=== PATIENT | male | born 1970 | race Caucasian/White ===

== ENCOUNTER 2016-09-22 01:02 | Inpatient (IN) | payer OTHER ==
[~2016-09-22] VITALS: Ht 182.9 cm; Wt 93.5 kg
[~2016-09-22 01:02] MED LIST: DOXE150C7 PO; FLUO40CA PO; GABA300C5 PO; LISI-515 PO; NOVOLOGSS
[2016-09-22] MEDS: SODIUM CHLOR 0.9% 1000 ML INJ 1,000 ML IV SCH ×3 (01:46→21:46)
[2016-09-22] MEDS ORDERED: ONDANSETRON HCL 4 MG/2 ML VIAL IVP PRN (02:00)
[2016-09-22] MEDS ORDERED: SODIUM CHLORIDE 0.9% FLUSH 10 ML FLUSH IV FLUSH PRN (02:00)
[2016-09-22] MEDS ORDERED: NALOXONE HCL 0.4 MG/ML AMP IV PRN ×2 (02:00→13:45)
[2016-09-22] MEDS ORDERED: NOVOINJ6 SQ (03:53)
[2016-09-22] MEDS ORDERED: NOVONP2 SQ (03:55)
[2016-09-22] MEDS ORDERED: RITA20TA PO (03:56)
[2016-09-22 04:00] VITALS: BP 118/94; PULSE 97; RESP 20; TEMP 96.9; O2SAT 100
[2016-09-22] MEDS ORDERED: REGL10TA5 PO (04:02)
[2016-09-22] MEDS ORDERED: GLUCAGON 1 MG/ML VIAL OTHER PRN (04:30)
[2016-09-22] MEDS: MORPHINE SULFATE 4 MG/ML INJ IV PUSH PRN ×4 (04:30→13:35)
[2016-09-22] MEDS ORDERED: DEXTROSE 50% IN WATER 50 ML VIAL(D50) IV PRN (04:30)
[2016-09-22] MEDS: INSULIN ASPART SUPPLEMENTAL SCALE SQ SCH ×4 (05:03→21:15)
[2016-09-22 05:32] LABS: CREATINE KINASE 57 U/L (39-308)
[2016-09-22] MEDS ORDERED: ORAMORPH PO (06:41)
[2016-09-22] MEDS: SODIUM CHLORIDE 0.9% FLUSH 10 ML FLUSH IV FLUSH SCH ×2 (07:30→21:10)
[2016-09-22 07:51] VITALS: PULSE 90
[2016-09-22 08:30] VITALS: BP 162/87; PULSE 89; RESP 19; TEMP 95.8; O2SAT 98
--- NOTE | 2016-09-22 08:36 | PD.CONS ---
cc: Josh Quintana MD [facility] Service General Surgery Consult Requested By Dr. Crowley Reason for Consult Evaluate small bowel obstruction Primary Care Physician No Primary Care Physician History of Present Illness This is a 46-year-old male with a history of type 1 diabetes mellitus, anxiety, depression, diverticulitis, GERD and hypertension. The patient reports the [facility] EGD With complaints of chest pain that starts in the left side and radiates to the right side with associated shortness of breath and nausea. He reports the pain as sharp in rates and an 8 out of 10 at its worst. He reports his blood sugar on arrival was in the 300s. He reports no vomiting. His last bowel movement was on Sunday. A CT abdomen and pelvis was obtained which showed early or partial small bowel obstruction in the anterior lower abdomen that may be related to adhesions. The patient has not had any emesis prior to arrival or during this hospitalization. A General Surgery consultation has been requested for evaluation of an earlier partial small bowel resection. Review of Systems Constitutional: DENIES: Fatigue, Chills, Change in appetite Endocrine: DENIES: Polydipsia, Polyuria, Polyphagia Eyes: DENIES: Diplopia Respiratory: DENIES: Cough Cardiovascular: COMPLAINS OF: Chest pain, Dyspnea on Exertion Gastrointestinal: COMPLAINS OF: Nausea, DENIES: Abdominal pain, Vomiting Genitourinary: DENIES: Urinary frequency Musculoskeletal: DENIES: Joint pain Integumentary: DENIES: Abnormal pigmentation Hematologic/lymphatic: DENIES: Bruising Immunologic/allergic: DENIES: Eczema Neurologic: DENIES: Abnormal gait, Headache Psychiatric: DENIES: Confusion, Mood changes, Depression Past Family Social History Past Medical History Type 1 diabetes mellitus Anxiety Depression Diverticulitis GERD Hypertension Past Surgical History Laparoscopic appendectomy Laparoscopic cholecystectomy Reported Medications Lisinopril Gabapentin NovoLog Novolin Oramorph Doxepin Fluoxetine Reglan Ritalin Allergies: Coded Allergies: Nonsteroidal Anti-Inflammatory Agts (Verified Allergy, Severe, 09/21/16) Toradol (Unverified Allergy, Severe, UNK, 09/21/16) Tylenol (Unverified Allergy, Severe, TONGUE SWELLING, 09/21/16) Zofran (Unverified Allergy, Intermediate, RED SKIN, 09/21/16) Active Ordered Medications Current Medications Medications (Trade) Dose Ordered Sig/Damien Route Start Time Stop Time Status Last Admin (NS 1000 ml Inj) 1,000 ml @ 100 mls/hr Q10H IV 09/22/16 01:46 09/22/16 01:46 (NS Flush) 2 ml UNSCH PRN IV FLUSH 09/22/16 02:00 (NS Flush) 2 ml BID IV FLUSH 09/22/16 09:00 09/22/16 07:30 (Narcan Inj) 0.4 mg UNSCH PRN IV 09/22/16 02:00 (Morphine Inj) 4 mg Q3H PRN IV PUSH 09/22/16 04:30 09/22/16 07:31 (D50w (Vial) Inj) 50 ml UNSCH PRN IV 09/22/16 04:30 (Glucagon Inj) 1 mg UNSCH PRN OTHER 09/22/16 04:30 Family History Noncontributory Social History Positive tobacco use--uses chewing tobacco Denies EtOH use Denies illicit drug use Physical Exam Vital Signs Vital Signs Date Time Temp Pulse Resp B/P Pulse Ox O2 Delivery O2 Flow Rate FiO2 09/22/16 08:30 95.8 89 19 162/87 98 09/22/16 04:00 96.9 97 20 118/94 100 Physical Exam GENERAL: Pleasant 46 year old male resting in bed no acute distress. SKIN: Warm and dry. HEAD: Atraumatic. Normocephalic. EYES: Pupils equal and round. No scleral icterus. No injection or drainage. ENT: No nasal bleeding or discharge. Mucous membranes pink and moist. NECK: Trachea midline. CARDIOVASCULAR: Regular rate and rhythm. RESPIRATORY: No accessory muscle use. Clear to auscultation. Breath sounds equal bilaterally. GASTROINTESTINAL: Abdomen soft, nondistended; minimally tender with deep palpation. No visible scars on abdomen. MUSCULOSKELETAL: Extremities without clubbing, cyanosis, or edema. No obvious deformities. NEUROLOGICAL: Awake and alert. No obvious cranial nerve deficits. Motor grossly within normal limits. Five out of 5 muscle strength in the arms and legs. Normal speech. PSYCHIATRIC: Appropriate mood and affect; insight and judgment normal. Laboratory Laboratory Tests Test 09/22/16 05:00 Total Creatine Kinase 57 Troponin I LESS THAN 0.[address] abd/pelvis from [facility]- early or partial small bowel obstruction in the anterior lower abdomen; may be related to adhesions Assessment and Plan Assessment and Plan 46 year old male with chest pain; + nausea - vomiting; CT abd/pelvis shows partial small bowel obstruction -Low suspicion of partial small bowel obstruction based on exam -Diet as tolerated -HEPAS team to workup chest pain -No operative plans -Thank you for this consult -General Surgery will sign off -Please call with questions I CERTIFY AND ATTEST THAT I PERSONALLY EXAMINED THIS PATIENT IN HIS ROOM AND REVIEWED THE EMR. MS DAVILA DOCUMENTED OUR VISIT. IN EXAMINING THIS PATIENT AND REVIEWING THE EMR HE HAS ABSOLUTELY NO CLINICAL HISTORY THAT WOULD INDICATE ANY TYPE OF BOWEL OBSTRUCTION. HE WENT TO THE [facility] ED WITH COMPLAINTS OF CHEST PAIN AFTER WALKING A LONG DISTANCE. THERE IS NO MENTION OF ABDOMINAL PAIN OR NAUSEA/VOMITING IN ANY HISTORY. HE REPORTS A LOOSE BM ON SUNDAY. I REVIEWED HIS CT SCAN AND SEE NO EVIDENCE OF AN SBO. SPECIFICALLY THERE IS NO GASTRIC DILATION, MINIMAL SMALL BOWEL DILATION AND GAS/STOOL THROUGHOUT THE ENTIRE COLON. HIS ONLY PREVIOUS ABDOMINAL SURGERY WAS A LAP JOSSIE AND A LAP APPY WHICH ARE VERY LOW RISK FOR ADHESIONS. HE IS HUNGRY NOW AND REQUESTING TO EAT. I WOULD RECOMMEND FEEDING HIM AND LOOKING ELSEWHERE FOR THE SOURCE OF HIS ORIGINAL COMPLAINTS (CHEST PAIN). WILL SEE PRN , PLEASE CALL. JOSH QUINTANA MD FACS Discussed Condition With Dr. Dannie WILLIAM Mr. Flavio HesterMaida Sep 22, 2016 08:36 Josh Quintana MD Sep 22, 2016 20:33
[2016-09-22 12:28] VITALS: BP 121/85; PULSE 88; RESP 19; TEMP 96.6; O2SAT 98
[2016-09-22] MEDS: GABAPENTIN 300 MG CAP PO SCH ×2 (13:35→17:22)
[2016-09-22] MEDS: METOCLOPRAMIDE HCL 10 MG TAB PO SCH ×3 (13:35→21:00)
[2016-09-22] MEDS ORDERED: oxyCODONE/ACETAMINOPHEN 10 MG/325 MG TAB PO PRN (13:45)
[2016-09-22] MEDS ORDERED: REGADENOSON INJ 0.4 MG/5 ML SYR IV ONE (14:46)
--- NOTE | 2016-09-22 15:45 | HHI.HP ---
[facility] Service [facility] Primary Care Physician No Primary Care Physician Admission Diagnosis Diagnoses: Chief Complaint: Chest pain Travel History International Travel<30 Days: No Contact w/Intl Traveler <30 Da: No Traveled to Known Affected Are: No History of Present Illness 46 year-old male with a history of diabetes type 1 was transferred from [facility] ED for evaluation of an acute onset of substernal chest pain described as pressure like with some degree of tightness with radiation to his neck as well as left arm. The pain is rated 7/10 in intensity. Patient denies any emesis. Patient also reported no bowel movement since Sunday however was positive for Flatus. CT abdomen was concerning for possible early or partial obstruction for which she will surgery was consulted. He denies any GI bleed. Review of Systems Except as stated in HPI: all other systems reviewed are Neg Past Family Social History Past Medical History Type 1 diabetes since age of 10 Depression Diverticulitis Chronic right shoulder pain with torn rotator cuff ADHD GERD/peptic and rectal ulcer Hypertension Gastroparesis Peripheral neuropathy Past Surgical History Appendectomy Cholecystectomy Reported Medications Novolog Inj (Insulin Aspart) 100 Unit/Ml Inj Gabapentin 300 Mg Cap 300 Mg PO TID Fluoxetine (Fluoxetine HCl) 40 Mg Cap 40 Cap PO DAILY Doxepin (Doxepin HCl) 150 Mg Cap 200 Mg PO DAILY Lisinopril 20 Mg Tab 20 Mg PO DAILY Allergies: Coded Allergies: Nonsteroidal Anti-Inflammatory Agts (Verified Allergy, Severe, 09/21/16) Toradol (Unverified Allergy, Severe, UNK, 09/21/16) Tylenol (Unverified Allergy, Severe, TONGUE SWELLING, 09/21/16) Zofran (Unverified Allergy, Intermediate, RED SKIN, 09/21/16) Family History Denies any family history of diabetes, hypertension or CAD Social History Alcohol Use: No Tobacco Use: No Substance Use: No Physical Exam Vital Signs Vital Signs Date Time Temp Pulse Resp B/P Pulse Ox O2 Delivery O2 Flow Rate FiO2 09/22/16 12:28 96.6 88 19 121/85 98 09/22/16 08:30 95.8 89 19 162/87 98 09/22/16 07:51 90 09/22/16 04:00 96.9 97 20 118/94 100 Physical Exam GENERAL: This is a well-nourished, well-developed patient, in no apparent distress. SKIN: No rashes, ecchymoses or lesions. Cool and dry. HEAD: Atraumatic. Normocephalic. No temporal or scalp tenderness. EYES: Pupils equal round and reactive. Extraocular motions intact. No scleral icterus. No injection or drainage. ENT: Nose without bleeding, purulent drainage or septal hematoma. Throat without erythema, tonsillar hypertrophy or exudate. Uvula midline. Airway patent. NECK: Trachea midline. No JVD or lymphadenopathy. Supple, nontender, no meningeal signs. CARDIOVASCULAR: Regular rate and rhythm without murmurs, gallops, or rubs. RESPIRATORY: Clear to auscultation. Breath sounds equal bilaterally. No wheezes , rales, or rhonchi. GASTROINTESTINAL: Abdomen soft, non-tender, nondistended. No hepato-splenomegaly , or palpable masses. No guarding. MUSCULOSKELETAL: Extremities without clubbing, cyanosis, or edema. No joint tenderness, effusion, or edema noted. No calf tenderness. Negative Homans sign bilaterally. NEUROLOGICAL: Awake and alert. Cranial nerves II through XII intact. Motor and sensory grossly within normal limits. Five out of 5 muscle strength in all muscle groups. Normal speech. Laboratory Laboratory Tests Test 09/22/16 05:00 Total Creatine Kinase 57 Troponin I LESS THAN 0.02 Assessment and Plan Problem List: (1) Atypical chest pain ICD Code: R07.89 Status: Resolved (2) Small bowel obstruction ICD Code: K56.69 Status: Acute (3) Type 1 diabetes mellitus ICD Code: E10.9 Status: Acute Assessment and Plan 46-year-old man with Atypical chest pain ACS ruled out per protocol with serial cardiac enzyme and EKGs However secondary to patient history of diabetes type 2 and current discomfort, will proceeded with Lexiscan stress Early or partial small bowel obstruction CT abdomen noted and review by me with finding of early or partial small bowel obstruction Gen. Surgery consulted and recommended conservative management Advance diet as tolerated Constipation Stool softener Diabetes type 1 Currently on insulin sliding scale with fingerstick blood glucose monitoring Resume outpatient regiments when able to tolerate by mouth DVT prophylaxis: Will hold anticoagulation, bilateral SCDs Code Status Full code Discussed Condition With Patient Physician Certification 2 Midnight Certification Type: Admission for Inpatient Services Order for Inpatient Services The services are ordered in accordance with Medicare regulations or non- Medicare payer requirements, as applicable. In the case of services not specified as inpatient-only, they are appropriately provided as inpatient services in accordance with the 2-midnight benchmark. Estimated LOS (days): 2 days is the estimated time the patient will need to remain in the hospital, assuming treatment plan goals are met and no additional complications. Post-Hospital Plan: Not yet determined Hair Hernandez MD Sep 22, 2016 15:45
[2016-09-22] MEDS: METHYLPHENIDATE HCL 10 MG TAB PO SCH (16:10)
[2016-09-22 16:24] VITALS: BP 121/152; PULSE 102; RESP 19; TEMP 96.1; O2SAT 100
--- NOTE | 2016-09-22 16:47 | RADRPT ---
EXAM DATE/TIME: 09/22/2016 14:50 [facility] COMPARISON: No previous studies available for comparison. INDICATIONS : Substernal chest pain with dyspnea. Angina. DOSE: 27.2 mCi Tc99m Myoview at stress. 8.7 mCi Tc99m Myoview at rest. 0.4 mg Lexiscan STRESS SYMPTOMS: Dyspnea. EJECTION FRACTION: > 70% MEDICAL HISTORY : Hypertension. Diabetes mellitus type 2. Gastroesophageal reflux disease. Diverticulitis. SURGICAL HISTORY : Appendectomy. Cholecystectomy. ENCOUNTER: Initial ACUITY: 1 day PAIN SCALE: 4/10 LOCATION: Substernal chest TECHNIQUE: The patient underwent pharmacologic stress with infusion of prescribed dose. Continuous ECG tracing was monitored during stress. Gated SPECT imaging was performed after stress and conventional SPECT i maging was performed at rest. The examination was performed on a SPECT/CT scanner, both attenuation and non-corrected datasets were reviewed. FINDINGS: DISTRIBUTION: The maximum perfused segment at stress is in the septal wall. PERFUSION STUDY: The pattern of perfusion at stress is within normal limits. GATED STUDY: There is intact wall motion and thickening without hypokinetic or dyskinetic segments. CONCLUSION: Normal examination. RISK CATEGORY: Low (<1% Annual Mortality Rate) Randy Cade MD on September 22, 2016 at 16:43 Board Certified Radiologist. This report was verified electronically.
[2016-09-22 20:00] VITALS: BP 133/80; PULSE 106; RESP 20; TEMP 97.4; O2SAT 97
[2016-09-22] MEDS: INSULIN HUMAN NPH 1,000 UNITS/10 ML VIAL SQ SCH (21:16)
[2016-09-23] VITALS: BP 141/85; PULSE 92; RESP 20; TEMP 96.4; O2SAT 98
[2016-09-23 04:00] VITALS: BP 141/85; PULSE 92; RESP 20; TEMP 96.4; O2SAT 98
[2016-09-23] MEDS: METHYLPHENIDATE HCL 10 MG TAB PO SCH ×2 (06:00→15:53)
[2016-09-23 07:41] LABS: AUTOMATED NEUTROPHIL # 1.6 TH/MM3 (1.8-7.7); BASOPHIL % 1.1 % (0.0-2.0); EOSINOPHIL # 0.2 TH/MM3 (0-0.4); EOSINOPHIL % 4.8 % (0.0-4.0); HEMATOCRIT 38.7 % (39.0-51.0); HEMO FLAGS DIFF FINAL; LYMPH % 31.3 % (9.0-44.0); MEAN CELL VOLUME 83.7 FL (80.0-100.0); MEAN CORPUSCULAR HEMOGLOBIN 28.6 PG (27.0-34.0); MEAN CORPUSCULAR HGB CONC 34.1 % (32.0-36.0); MONO % 11.8 % (0.0-8.0); PLATELET COUNT 224 TH/MM3 (150-450); RED BLOOD COUNT 4.62 MIL/MM3 (4.50-5.90); RED CELL DISTRIBUTION WIDTH 13.1 % (11.6-17.2); WHITE BLOOD COUNT 3.2 TH/MM3 (4.0-11.0)
[2016-09-23] MEDS: SODIUM CHLOR 0.9% 1000 ML INJ 1,000 ML IV SCH ×2 (07:46→15:48)
[2016-09-23 07:47] LABS: CHLORIDE 101 MEQ/L (98-107); POTASSIUM 3.9 MEQ/L (3.5-5.1); SODIUM (NA) 134 MEQ/L (136-145)
[2016-09-23 07:51] LABS: ANION GAP 8 MEQ/L (5-15); BICARBONATE 25.5 MEQ/L (21.0-32.0); BLOOD UREA NITROGEN 13 MG/DL (7-18)
[2016-09-23] MEDS: INSULIN ASPART SUPPLEMENTAL SCALE SQ SCH ×5 (07:52→20:20)
[2016-09-23 07:54] LABS: ALT (GPT) 335 U/L (12-78); AST (GOT) 294 U/L (15-37); GLOMERULAR FILTRATION RATE 110 ML/MIN (>89)
[2016-09-23 07:55] LABS: TOTAL BILIRUBIN ADULT 0.8 MG/DL (0.2-1.0)
[2016-09-23 07:57] LABS: ALKALINE PHOSPHATASE 279 U/L (45-117)
[2016-09-23] MEDS: METOCLOPRAMIDE HCL 10 MG TAB PO SCH ×4 (08:16→20:18)
[2016-09-23] MEDS: SODIUM CHLORIDE 0.9% FLUSH 10 ML FLUSH IV FLUSH SCH ×2 (08:17→20:19)
[2016-09-23] MEDS: GABAPENTIN 300 MG CAP PO SCH ×3 (08:17→17:08)
[2016-09-23] MEDS: INSULIN HUMAN NPH 1,000 UNITS/10 ML VIAL SQ SCH ×2 (08:21→20:19)
[2016-09-23] MEDS ORDERED: DOXEPIN HCL 50 MG CAP PO SCH ×2 (09:00→21:00)
[2016-09-23] MEDS: LISINOPRIL 20 MG TAB PO SCH (09:21)
[2016-09-23 09:23] VITALS: BP 142/93; PULSE 99; RESP 18; TEMP 97.8; O2SAT 96
--- NOTE | 2016-09-23 09:54 | HHI.PR ---
Subjective Remarks Follow-up atypical chest pain/early bowel obstruction 09/23/16-patient seen and examined, denies any chest pain. Habits negative stress test. Patient reports 3 episode of DM mostly loose stool since yesterday. This morning he had one episode of emesis Objective Vitals Vital Signs Date Time Temp Pulse Resp B/P Pulse Ox O2 Delivery O2 Flow Rate FiO2 09/23/16 09:23 97.8 99 18 142/93 96 09/23/16 04:00 96.4 92 20 141/85 98 09/23/16 00:00 96.4 92 20 141/85 98 09/22/16 20:00 97.4 106 20 133/80 97 09/22/16 16:24 96.1 102 19 121/152 100 09/22/16 12:28 96.6 88 19 121/85 98 I/O 09/22/16 09/22/16 09/22/16 09/23/16 09/23/16 09/23/16 06:59 14:59 22:59 06:59 14:59 22:59 Intake Total 200 ml 721 ml 480 ml 480 ml Output Total 725 ml Balance 200 ml -4 ml 480 ml 480 ml Intake Oral 0 ml 306 ml 480 ml 480 ml IV Total 200 ml 415 ml Output Urine Total 725 ml # Voids 1 3 3 # Bowel Movements 0 1 2 Result Diagram: 09/23/16 0625 09/23/16 0625 Imaging Last Impressions Myocardial Perfusion Scan Nuc Med 09/22/16 0000 Signed Impressions: Service Date/Time: Thursday, September 22, 2016 14:50 - CONCLUSION: Normal examination. RISK CATEGORY: Low (<1%% Annual Mortality Rate) Randy Cade MD Objective Remarks GENERAL: NAD SKIN: Warm and dry. HEAD: Normocephalic. EYES: No scleral icterus. No injection or drainage. NECK: Supple, trachea midline. No JVD or lymphadenopathy. CARDIOVASCULAR: Regular rate and rhythm without murmurs, gallops, or rubs. RESPIRATORY: Breath sounds equal bilaterally. No accessory muscle use. GASTROINTESTINAL: Abdomen soft, non-tender, nondistended. MUSCULOSKELETAL: No cyanosis, or edema. BACK: Nontender without obvious deformity. No CVA tenderness. A/P Problem List: (1) Atypical chest pain ICD Code: R07.89 Status: Resolved (2) Small bowel obstruction ICD Code: K56.69 Status: Acute (3) Type 1 diabetes mellitus ICD Code: E10.9 Status: Acute Assessment and Plan 46-year-old man with Atypical chest pain-resolved ACS ruled out per protocol with serial cardiac enzyme and EKGs Normal nuclear stress test performed 09/22/16 Early or partial small bowel obstruction CT abdomen with finding of early or partial small bowel obstruction Gen. Surgery consulted and recommended conservative management Patient reports 3 BM since admission Due to emesis will check abdominal x-ray, changed diet to full liquid Constipation Resolved with Stool softener Diabetes type 1 Currently on insulin sliding scale with fingerstick blood glucose monitoring Continue outpatient regiments when able to tolerate by mouth Transaminitis Check hepatitis profile DVT prophylaxis: bilateral SCDs Hair Hernandez MD Sep 23, 2016 09:54
[2016-09-23] MEDS: METOCLOPRAMIDE HCL 10 MG/2 ML VIAL IV PRN ×2 (10:11→15:59)
[2016-09-23 12:28] VITALS: BP 151/93; PULSE 106; RESP 20; TEMP 97.2; O2SAT 97
--- NOTE | 2016-09-23 13:54 | RADRPT ---
EXAM DATE/TIME: 09/23/2016 12:03 [facility] COMPARISON: CT ABDOMEN & PELVIS W/O CONTRAST, September 21, 2016, 23:29. INDICATIONS : Follow up obstruction. MEDICAL HISTORY : None. SURGICAL HISTORY : None. ENCOUNTER: Subsequent ACUITY: 3 days PAIN SCORE: 5/10 LOCATION: Bilateral lower quadrant FINDINGS: Supine and upright views of the abdomen were performed. The abdominal bowel gas pattern is normal. No air fluid levels are seen. No abnormal masses, calcifications, or organomegaly is seen. The visu alized lower lungs are clear. No evidence of free intraperitoneal gas. The osseous structures are u nremarkable. CONCLUSION: No evidence of obstructive gas pattern, free air or mass effect. Greg Vogel MD on September 23, 2016 at 13:51 Board Certified Radiologist. This report was verified electronically.
[2016-09-23 16:00] VITALS: BP 125/77; PULSE 89; RESP 20; TEMP 96.8; O2SAT 97
[2016-09-23 20:56] VITALS: BP 133/74; PULSE 90; RESP 14; TEMP 97.1; O2SAT 98
[2016-09-24 00:03] VITALS: BP 95/62; PULSE 88; RESP 16; TEMP 97.6; O2SAT 97
[2016-09-24] MEDS: SODIUM CHLOR 0.9% 1000 ML INJ 1,000 ML IV SCH (01:16)
[2016-09-24] MEDS: METHYLPHENIDATE HCL 10 MG TAB PO SCH (06:23)
[2016-09-24] MEDS: INSULIN ASPART SUPPLEMENTAL SCALE SQ SCH (06:25)
[2016-09-24 08:00] VITALS: BP 114/74; PULSE 78; RESP 16; TEMP 97.9; O2SAT 96
[2016-09-24] MEDS: METOCLOPRAMIDE HCL 10 MG TAB PO SCH (08:09)
[2016-09-24] MEDS: GABAPENTIN 300 MG CAP PO SCH (08:09)
[2016-09-24] MEDS: INSULIN HUMAN NPH 1,000 UNITS/10 ML VIAL SQ SCH (08:09)
[2016-09-24] MEDS: SODIUM CHLORIDE 0.9% FLUSH 10 ML FLUSH IV FLUSH SCH (08:09)
[2016-09-24] MEDS: LISINOPRIL 20 MG TAB PO SCH (08:09)
--- NOTE | 2016-09-24 08:28 | HHI.PR ---
Subjective Remarks Follow-up atypical chest pain/early bowel obstruction 09/23/16-patient seen and examined, denies any chest pain. Habits negative stress test. Patient reports 3 episode of DM mostly loose stool since yesterday. This morning he had one episode of emesis 09/24/16-patient seen and examined, no episode of emesis overnight. Denies any chest pain or shortness of breath. Now reports normal BM Objective Vitals Vital Signs Date Time Temp Pulse Resp B/P Pulse Ox O2 Delivery O2 Flow Rate FiO2 09/24/16 08:00 97.9 78 16 114/74 96 09/24/16 07:30 16 09/24/16 00:03 97.6 88 16 95/62 97 09/23/16 20:56 97.1 90 14 133/74 98 09/23/16 16:00 96.8 89 20 125/77 97 09/23/16 12:28 97.2 106 20 151/93 97 09/23/16 11:54 18 09/23/16 09:23 97.8 99 18 142/93 96 I/O 09/23/16 09/23/16 09/23/16 09/24/16 09/24/16 09/24/16 07:00 15:00 23:00 07:00 15:00 23:00 Intake Total 480 ml 100 ml 540 ml Balance 480 ml 100 ml 540 ml Intake Oral 480 ml 100 ml 240 ml IV Total 300 ml # Voids 3 2 2 1 Result Diagram: 09/23/16 0625 09/23/16 0625 Imaging Last Impressions Abdomen X-Ray 09/23/16 0000 Signed Impressions: Service Date/Time: Friday, September 23, 2016 12:03 - CONCLUSION: No evidence of obstructive gas pattern, free air or mass effect. Greg Vogel MD Myocardial Perfusion Scan Nuc Med 09/22/16 0000 Signed Impressions: Service Date/Time: Thursday, September 22, 2016 14:50 - CONCLUSION: Normal examination. RISK CATEGORY: Low (<1%% Annual Mortality Rate) Randy Cade MD Objective Remarks GENERAL: NAD SKIN: Warm and dry. HEAD: Normocephalic. EYES: No scleral icterus. No injection or drainage. NECK: Supple, trachea midline. No JVD or lymphadenopathy. CARDIOVASCULAR: Regular rate and rhythm without murmurs, gallops, or rubs. RESPIRATORY: Breath sounds equal bilaterally. No accessory muscle use. GASTROINTESTINAL: Abdomen soft, non-tender, nondistended. MUSCULOSKELETAL: No cyanosis, or edema. BACK: Nontender without obvious deformity. No CVA tenderness. Procedures None A/P Problem List: (1) Atypical chest pain ICD Code: R07.89 Status: Resolved (2) Small bowel obstruction ICD Code: K56.69 Status: Acute (3) Type 1 diabetes mellitus ICD Code: E10.9 Status: Acute Assessment and Plan 46-year-old man with Atypical chest pain-resolved ACS ruled out per protocol with serial cardiac enzyme and EKGs Normal nuclear stress test performed 09/22/16 Early or partial small bowel obstruction CT abdomen with finding of early or partial small bowel obstruction Gen. Surgery consulted and recommended conservative management Flat and upright 09/23/16 unremarkable Advance diet as tolerated Constipation Resolved with Stool softener Diabetes type 1 Currently on insulin sliding scale with fingerstick blood glucose monitoring Continue outpatient regiments when able to tolerate by mouth Transaminitis hepatitis profile pending DVT prophylaxis: bilateral SCDs Hair Hernandez MD Sep 24, 2016 08:28
--- NOTE | 2016-09-24 08:30 | HHI.DS ---
Discharge Summary Admission Date Sep 22, 2016 at 03:33 Discharge Date: Sep 24, 2016 Admitting Diagnosis (1) Atypical chest pain ICD Code: R07.89 (2) Small bowel obstruction ICD Code: K56.69 (3) Type 1 diabetes mellitus ICD Code: E10.9 Procedures None Brief History - From Admission 46 year-old male with a history of diabetes type 1 was transferred from [facility] ED for evaluation of an acute onset of substernal chest pain described as pressure like with some degree of tightness with radiation to his neck as well as left arm. The pain is rated 7/10 in intensity. Patient denies any emesis. Patient also reported no bowel movement since Sunday however was positive for Flatus. CT abdomen was concerning for possible early or partial obstruction for which she will surgery was consulted. He denies any GI bleed. CBC/BMP: 09/23/16 0625 09/23/16 0625 Significant Findings Laboratory Tests Test 09/22/16 09/23/16 05:00 06:25 Troponin I LESS THAN 0.02 NG/ML (0.02-0.05) White Blood Count 3.2 TH/MM3 (4.0-11.0) Hematocrit 38.7 % (39.0-51.0) Monocytes (%) (Auto) 11.8 % (0.0-8.0) Eosinophils (%) (Auto) 4.8 % (0.0-4.0) Neutrophils # (Auto) 1.6 TH/MM3 (1.8-7.7) Sodium Level 134 MEQ/L (136-145) Random Glucose 187 MG/DL (74-106) Calcium Level 8.3 MG/DL (8.5-10.1) Aspartate Amino Transf 294 U/L (15-37) (AST/SGOT) Alanine Aminotransferase 335 U/L (12-78) (ALT/SGPT) Alkaline Phosphatase 279 U/L (45-117) Albumin 3.2 GM/DL (3.4-5.0) Imaging Last Impressions Abdomen X-Ray 09/23/16 0000 Signed Impressions: Service Date/Time: Friday, September 23, 2016 12:03 - CONCLUSION: No evidence of obstructive gas pattern, free air or mass effect. Greg Vogel MD Myocardial Perfusion Scan Nuc Med 09/22/16 0000 Signed Impressions: Service Date/Time: Thursday, September 22, 2016 14:50 - CONCLUSION: Normal examination. RISK CATEGORY: Low (<1%% Annual Mortality Rate) Randy Cade MD PE at Discharge GENERAL: NAD SKIN: Warm and dry. HEAD: Normocephalic. EYES: No scleral icterus. No injection or drainage. NECK: Supple, trachea midline. No JVD or lymphadenopathy. CARDIOVASCULAR: Regular rate and rhythm without murmurs, gallops, or rubs. RESPIRATORY: Breath sounds equal bilaterally. No accessory muscle use. GASTROINTESTINAL: Abdomen soft, non-tender, nondistended. MUSCULOSKELETAL: No cyanosis, or edema. BACK: Nontender without obvious deformity. No CVA tenderness. Hospital Course Patient admitted secondary to atypical chest pain for which he underwent a normal nuclear stress test and coordination secondary to finding of early partial small bowel obstruction, general surgery was consulted however patient was treated conservatively and reported bowel movements. Due to episode of emesis of black and upright was order and was read unremarkable. Patient diet was advanced accordingly. DVT and GI prophylaxis were provided. Prior to discharge, patient's condition improved and vital remained stable. Pt Condition on Discharge: Stable Discharge Disposition: Discharge Home Discharge Time: <= 30 minutes Discharge Instructions DIET: Follow Instructions for: Heart Healthy Diet Follow up Referrals: PCP Follow-up - 1 Week Continued Medications: Doxepin (Doxepin) 150 Mg Cap 200 MG PO DAILY Ref 0 CAP Fluoxetine (Fluoxetine) 40 Mg Cap 40 CAP PO DAILY Ref 0 CAP Gabapentin (Gabapentin) 300 Mg Cap 300 MG PO TID Ref 0 CAP Insulin Aspart Inj (Novolog Inj) 100 Unit/Ml Inj Insulin Human NPH Inj (Novolin N Inj) 1,000 Unit/10 Ml Vial 18 UNITS SQ q pm Blood Sugar Management #10 Ref 0 ML Insulin NPH (Human) (Isophane) Inj (Novolin N U-100 Inj) 100 Unit/Ml Inj 32 UNITS SQ q am Lisinopril (Lisinopril) 20 Mg Tab 20 MG PO DAILY Ref 0 TAB Methylphenidate IR (Ritalin IR) 20 Mg Tab 20 MG PO BIDAC Agitation #60 Ref 0 TAB Metoclopramide (Reglan) 10 Mg Tab 10 MG PO QID #120 Ref 0 TAB ([oramorph sr]) 15 MG PO Q8HR PRN prn Hair Hernandez MD Sep 24, 2016 08:30
[2016-09-26] MEDS ORDERED: INSULIN N SQ (23:00)
[2016-09-26] MEDS ORDERED: REGULAR INSULIN SQ (23:00)
== END 2016-09-24 09:57 | disposition home or self-care (01) | DRG 313 ==
LOC: PHEDDLT 01:02 → PH3A 03:33 → UNDOADMOB 03:33 → OBSVTOIN 03:33 → UNDODISOB 09-24 09:57
PROVIDERS: ADMIT Hospitalist; ATTEND Hospitalist
DX: R07.89 Other chest pain (principal); K56.60 Unspecified intestinal obstruction; K31.84 Gastroparesis; E10.43 Type 1 diabetes mellitus with diabetic autonomic (poly)neuropathy; K59.00 Constipation, unspecified; I10 Essential (primary) hypertension; F32.9 Major depressive disorder, single episode, unspecified; R74.0 Nonspecific elevation of levels of transaminase and lactic acid dehydrogenase [LDH]; Z72.0 Tobacco use; Z79.4 Long term (current) use of insulin; Z88.6 Allergy status to analgesic agent; Z88.8 Allergy status to other drugs, medicaments and biological substances
CPT/HCPCS: 71010; 74020; 74176; 78452; 80048; 80053; 80074; 82550; 82948; 83690; 83735; 84484; 85025; 85379; 85610; 85730; 93005; 93017; 99281; A9502; J1170; J1815; J2270; J2765; J2785; J7030

== ENCOUNTER 2016-09-27 03:19 | Inpatient (IN) | payer SELFPAY ==
[~2016-09-27] VITALS: Ht 182.9 cm; Wt 91.8 kg
[~2016-09-27 03:19] MED LIST changes: +INSULIN N SQ; -NOVOLOGSS; +ORAMORPH PO; +REGL10TA5 PO; +REGULAR INSULIN SQ; +RITA20TA PO
[2016-09-27 04:01] VITALS: BP 135/100; PULSE 84; RESP 20; TEMP 96.6; O2SAT 99
[2016-09-27] MEDS ORDERED: SODIUM CHLORIDE 0.9% FLUSH 10 ML FLUSH IV FLUSH PRN (04:45)
[2016-09-27] MEDS ORDERED: NALOXONE HCL 0.4 MG/ML AMP IV PRN (04:45)
[2016-09-27] MEDS ORDERED: SENNOSIDES 8.6 MG TAB PO PRN (04:45)
[2016-09-27] MEDS ORDERED: BISACODYL 10 MG SUPP RECTAL PRN (04:45)
[2016-09-27] MEDS ORDERED: LACTULOSE SYRUP 20 GM/30 ML CUP PO PRN (04:45)
[2016-09-27] MEDS ORDERED: MAGNESIUM HYDROXIDE SUSP 30 ML CUP PO PRN (04:45)
[2016-09-27] MEDS ORDERED: GLUCAGON 1 MG/ML VIAL OTHER PRN (05:00)
[2016-09-27] MEDS ORDERED: DEXTROSE 50% IN WATER 50 ML VIAL(D50) IV PRN (05:00)
[2016-09-27] MEDS: MORPHINE SULFATE 4 MG/ML INJ IV PUSH PRN ×3 (05:13→11:35)
[2016-09-27 06:06] LABS: CHLORIDE 107 MEQ/L (98-107); SODIUM (NA) 140 MEQ/L (136-145)
[2016-09-27 06:09] LABS: ANION GAP 8 MEQ/L (5-15); BICARBONATE 25.4 MEQ/L (21.0-32.0); BLOOD UREA NITROGEN 13 MG/DL (7-18)
[2016-09-27 06:11] LABS: AUTOMATED NEUTROPHIL # 2.1 TH/MM3 (1.8-7.7); BASOPHIL % 1.2 % (0.0-2.0); EOSINOPHIL # 0.2 TH/MM3 (0-0.4); EOSINOPHIL % 4.9 % (0.0-4.0); HEMATOCRIT 36.5 % (39.0-51.0); HEMO FLAGS DIFF FINAL; LYMPH % 33.2 % (9.0-44.0); LYMPHOCYTE # 1.3 TH/MM3 (1.0-4.8); MEAN CELL VOLUME 84.4 FL (80.0-100.0); MEAN CORPUSCULAR HEMOGLOBIN 28.6 PG (27.0-34.0); MEAN CORPUSCULAR HGB CONC 33.9 % (32.0-36.0); MONO % 10.1 % (0.0-8.0); NEUT % 50.6 % (16.0-70.0); PLATELET COUNT 226 TH/MM3 (150-450); RED BLOOD COUNT 4.32 MIL/MM3 (4.50-5.90); RED CELL DISTRIBUTION WIDTH 12.7 % (11.6-17.2)
[2016-09-27 06:12] LABS: ALT (GPT) 349 U/L (12-78); AST (GOT) 178 U/L (15-37); GLOMERULAR FILTRATION RATE 100 ML/MIN (>89)
[2016-09-27 06:14] LABS: TOTAL BILIRUBIN ADULT 0.6 MG/DL (0.2-1.0)
[2016-09-27 06:15] LABS: ALKALINE PHOSPHATASE 266 U/L (45-117)
[2016-09-27 06:18] LABS: CREATINE KINASE 49 U/L (39-308)
[2016-09-27] MEDS: INSULIN ASPART SUPPLEMENTAL SCALE SQ SCH ×3 (08:22→11:43)
--- NOTE | 2016-09-27 08:51 | HHI.HP ---
[facility] Unknown Admission Diagnosis Diagnoses: (1) DKA (diabetic ketoacidoses) Diagnosis: Principal Chief Complaint: Uncontrolled diabetes, nausea vomiting Travel History International Travel<30 Days: No Contact w/Intl Traveler <30 Da: No History of Present Illness Written by Rodrigo Hodge, acting as scribe for Dr. Hernandez on 09/27/16 at 08: 50. 46 year-old male with rather extensive history with diabetes, chronic pain, hypertension, gastroesophageal reflux, questionable gastroparesis, peripheral neuropathy who presented to hospital because of elevated blood sugar and nausea vomiting. Patient was just discharged from the hospital less than a week ago, in which he was treated for possible bowel obstruction. Patient states that he was doing well up until yesterday when he states that when he woke up in the morning and he had some nausea and vomiting, he checked his blood sugar and it was reading high so he took his morning dose of NPH 32 units , regular insulin 12 units and gave herself some sliding scale coverage. He ate Posta for lunch and checked his sugar again for sliding scale insulin. It read high so he went outside to do some exercise and try to burn off some glucose, and he gave himself some extra coverage. He had an episode of nausea and vomiting while he was outside. He called the ambulance who came and evaluated him and he had a glucose reading that read high again so [facility] did give him some more insulin coverage. Patient was taken to [place] emergency department where he was found to have anion gap acidosis with uncontrolled diabetes. Patient was started on insulin IV in which his anion gap closed rather quickly and he was converted to sliding scale insulin. There is no indication the patient had any recurrent nausea or vomiting in the emergency department and ordered since being here the hospital. Patient diabetes is under better control at this time. Anion gap has closed. Diabetes being controlled with sliding scale insulin. Patient indicates that he does not have any nausea or vomiting, however he states that he does not have an appetite at this time. Patient clinically stable this time. Underlying admission condition has been resolved. Will plan discharge accordingly. Review of Systems Gastrointestinal: COMPLAINS OF: Nausea, Vomiting Except as stated in HPI: all other systems reviewed are Neg Past Family Social History Past Medical History Diabetes type 1 since age 6 Chronic shoulder pain ADHD Possible diabetic gastroparesis Hypertension Peripheral neuropathy Past Surgical History Appendectomy Cholecystectomy Reported Medications Reported Meds & Active Scripts Active Reported [Insulin N] SQ 32 UNITS AM 12 UNITS PM [Regular Insulin] SQ 12 UNITS AM 12 UNITS PM [oramorph sr] 15 Mg PO Q8HR PRN Reglan (Metoclopramide HCl) 10 Mg Tab 10 Mg PO QID Ritalin IR (Methylphenidate HCl) 20 Mg Tab 20 Mg PO BIDAC Gabapentin 300 Mg Cap 300 Mg PO TID Fluoxetine (Fluoxetine HCl) 40 Mg Cap 40 Cap PO DAILY Doxepin (Doxepin HCl) 150 Mg Cap 300 Mg PO DAILY Lisinopril 20 Mg Tab 20 Mg PO DAILY Allergies: Coded Allergies: acetaminophen (Unverified Allergy, Severe, TONGUE SWELLING, 09/26/16) diclofenac (Unverified Allergy, Severe, 09/26/16) etodolac (Unverified Allergy, Severe, 09/26/16) flurbiprofen (Unverified Allergy, Severe, 09/26/16) ibuprofen (Unverified Allergy, Severe, 09/26/16) indomethacin (Unverified Allergy, Severe, 09/26/16) ketoprofen (Unverified Allergy, Severe, 09/26/16) ketorolac (Unverified Allergy, Severe, UNK, 09/26/16) naproxen (Unverified Allergy, Severe, 09/26/16) oxaprozin (Unverified Allergy, Severe, 09/26/16) ondansetron (Unverified Allergy, Intermediate, RED SKIN, 09/26/16) Family History Reviewed and unremarkable for any heart disease, diabetes, cancer, seizures, strokes Social History Patient denies any tobacco, alcohol or illicit drugs Physical Exam Vital Signs Vital Signs Date Time Temp Pulse Resp B/P Pulse Ox O2 Delivery O2 Flow Rate FiO2 09/27/16 04:01 96.6 84 20 135/100 99 Physical Exam GENERAL: Well-developed, well-nourished, in no acute distress. alert and orientated HEENT: Head is normocephalic without any lesions or masses noted. Facial features are symmetric. Eyes: Pupils equal round reactive to light. Extraocular muscles are intact. Conjunctivae were clear. Oropharyngeal: Pharynx without any erythema edema. Tongue is midline without deviation. Buccal mucosa is moist without any masses or lesions NECK: Supple without any masses. Trachea midline no deviation. No JVD, no bruits are appreciated CARDIAC: Regular rhythm, regular rate. S1/S2 are heard. No murmurs gallops or rubs. LUNGS: Clear to auscultation bilaterally. No wheeze, rhonchi or rales. No use of accessory muscles on inspiration or expiration. ABDOMEN: Soft, nontender. Nondistended. Bowel sounds heard in all 4 quadrants. No organomegaly or masses. Negative rebound, negative guarding EXTREMITIES: No edema, pulses are equal bilaterally. No cyanosis or clubbing NEUROLOGY: Mood and affect appear appropriate. Cranial nerves II through XII grossly intact. Muscle strength 5/5 in upper and lower extremities bilaterally. Deep tendon reflexes are 2+ in upper and lower extremities bilaterally. Laboratory Laboratory Tests Test 09/27/16 05:35 White Blood Count 4.0 Red Blood Count 4.32 Hemoglobin 12.4 Hematocrit 36.5 Mean Corpuscular Volume 84.4 Mean Corpuscular Hemoglobin 28.6 Mean Corpuscular Hemoglobin 33.9 Concent Red Cell Distribution Width 12.7 Platelet Count 226 Mean Platelet Volume 8.2 Neutrophils (%) (Auto) 50.6 Lymphocytes (%) (Auto) 33.2 Monocytes (%) (Auto) 10.1 Eosinophils (%) (Auto) 4.9 Basophils (%) (Auto) 1.2 Neutrophils # (Auto) 2.1 Lymphocytes # (Auto) 1.3 Monocytes # (Auto) 0.4 Eosinophils # (Auto) 0.2 Basophils # (Auto) 0.0 CBC Comment DIFF FINAL Differential Comment Sodium Level 140 Potassium Level 4.0 Chloride Level 107 Carbon Dioxide Level 25.4 Anion Gap 8 Blood Urea Nitrogen 13 Creatinine 0.83 Estimat Glomerular Filtration 100 Rate Random Glucose 159 Calcium Level 8.0 Total Bilirubin 0.6 Aspartate Amino Transf 178 (AST/SGOT) Alanine Aminotransferase 349 (ALT/SGPT) Alkaline Phosphatase 266 Total Creatine Kinase 49 Troponin I LESS THAN 0.02 Total Protein 7.1 Albumin 3.1 Result Diagram: 09/27/16 0535 09/27/16 0535 Assessment and Plan Assessment and Plan Diabetic ketoacidosis Possible underlying associated diabetic gastroparesis, improved, patient no longer having nausea vomiting Status post insulin IV Now on Accu-Cheks with sliding scale insulin Anion gap has closed and BMP is normal with glucose 159 We'll resume patient's home insulin dosage Hypertension Resume home medications DVT prevention Low risk, early ambulation This note was transcribed by yousif Hodge. I, Dr. Hair Hernandez personally performed the history, physical exam, and medical decision making; and confirmed the accuracy of the information in the transcribed note. Authenticated by Dr. Hair Hernandez on 09/27/16 at 08:50. Discharge disposition Discharge home in stable condition Activity: Ad evelina. Diet: Diabetic diet Medications per medication reconciliation Follow-up primary medical doctor in one week Code Status Full code Discussed Condition With Patient Physician Certification 2 Midnight Certification Type: Admission for Inpatient Services Order for Inpatient Services The services are ordered in accordance with Medicare regulations or non- Medicare payer requirements, as applicable. In the case of services not specified as inpatient-only, they are appropriately provided as inpatient services in accordance with the 2-midnight benchmark. Estimated LOS (days): 1 days is the estimated time the patient will need to remain in the hospital, assuming treatment plan goals are met and no additional complications. Post-Hospital Plan: Home Problem Qualifiers (1) DKA (diabetic ketoacidoses): Rodrigo Hodge Sep 27, 2016 08:51 Hair Hernandez MD Sep 27, 2016 08:51
[2016-09-27] MEDS ORDERED: DOCUSATE SODIUM 50 MG/SENNA 8.6 MG TAB PO SCH (09:00)
[2016-09-27] MEDS ORDERED: SODIUM CHLORIDE 0.9% FLUSH 10 ML FLUSH IV FLUSH SCH (09:00)
[2016-09-27 09:02] VITALS: BP 137/87; PULSE 76; RESP 20; TEMP 97.4; O2SAT 99
[2016-09-27 12:01] LABS: CREATINE KINASE 60 U/L (39-308)
--- NOTE | 2016-09-27 13:45 | HHI.DCPOC ---
Discharge Care Plan Diagnosis: (1) Diabetic ketoacidosis associated with type 1 diabetes mellitus Goals to Promote Your Health * To prevent worsening of your condition and complications * To maintain your health at the optimal level Directions to Meet Your Goals Take your medications as prescribed Follow your dietary instruction Follow activity as directed Keep your appointments as scheduled Take your immunizations and boosters as scheduled If your symptoms worsen call your PCP, if no PCP go to Urgent Care Center or Emergency Room Smoking is Dangerous to Your Health. Avoid second hand smoke Call the 24-hour hour crisis hotline for domestic abuse at Rodrigo Hodge Sep 27, 2016 13:45
[2016-09-27] MEDS ORDERED: INSULIN N SQ (13:53)
[2016-09-27] MEDS ORDERED: REGULAR INSULIN SQ (13:53)
[2016-09-27 14:25] VITALS: BP 140/87; PULSE 99; RESP 16; TEMP 98; O2SAT 96
--- NOTE | 2016-09-27 15:01 | EKG ---
Date Performed: 09/27/2016 Time Performed: 05:09:21 PTAGE: 46 years EKG: Sinus rhythm NORMAL ECG PREVIOUS TRACING : 11/24/2015 19.36 Compared to the previous tracing, rate has decreased DOCTOR: Rafael Dumont Interpretating Date/Time 09/27/2016 14:59:33
--- NOTE | 2016-09-28 09:24 | EKG ---
Date Performed: 09/27/2016 Time Performed: 11:25:19 PTAGE: 46 years EKG: Sinus rhythm LOW QRS VOLTAGE IN PRECORDIAL LEADS BORDERLINE ECG PREVIOUS TRACING : 09/27/2016 05.09 Compared to prior tracing no significant change DOCTOR: Sander Whipple Interpretating Date/Time 09/28/2016 09:10:52
== END 2016-09-27 14:32 | disposition home or self-care (01) | DRG 639 ==
LOC: NEDDLT 03:19 → PH3B 03:29
PROVIDERS: ADMIT Hospitalist; ATTEND Hospitalist
DX: E10.10 Type 1 diabetes mellitus with ketoacidosis without coma (principal); K31.84 Gastroparesis; E10.42 Type 1 diabetes mellitus with diabetic polyneuropathy; E10.43 Type 1 diabetes mellitus with diabetic autonomic (poly)neuropathy; G89.29 Other chronic pain; M25.519 Pain in unspecified shoulder; F90.9 Attention-deficit hyperactivity disorder, unspecified type; I10 Essential (primary) hypertension; Z79.4 Long term (current) use of insulin; K21.9 Gastro-esophageal reflux disease without esophagitis
CPT/HCPCS: 74176; 80048; 80053; 82010; 82550; 82805; 82948; 84484; 85025; 93005; 96361; 96374; 96375; 96376; C9113; J1815; J2270; J2765; J7030

== ENCOUNTER 2017-09-18 14:58 | Inpatient (IN) ==
[2017-09-18] MEDS ORDERED: Sod Chloride 0.9% Inj 1,000 ML IV.SIG ONE (15:11)
[2017-09-18] MEDS ORDERED: Naloxone Inj 0.4 MG/ML Vial IM ONE (15:38)
--- NOTE | 2017-09-18 15:38 | ED ---
HPI General Chief complaint: Overdose Stated complaint: Poss AMS Time Seen by Provider: 09/18/17 15:05 Source: patient and EMS Mode of arrival: EMS Limitations: no limitations History of Present Illness HPI narrative: Patient is a 47-year-old male presenting to emerge department via EMS for evaluation of a hypoglycemic episode, possible overdose. Patient reports that he is a type I diabetic, he got his insulins filled at the pharmacy this morning. He took 35 units of Lantus and 12 units of regular insulin. Patient had not checked his blood sugar prior to doing this. Patient did not eat after taking the insulin. He went over to his girlfriend's house where he proceeded to do a line of heroin. Shortly thereafter patient states he felt shaky as if he was having a hypoglycemic episode. He states that he started eating, he had a candy bar and other food. Despite this attempt he lost consciousness. When EMS arrived on scene patient's blood glucose was 50. They established an IO, gave D50, his blood glucose was assessed at 80. Upon arrival to the emergency department patient's blood glucose is 118 and he was alert and talking. Patient reports that he has been having bilateral lower extremity edema for the last 4 months. He reports shortness of breath that is also worsened over the last several months. Patient denies any chest pain, fever, chills, headache or dizziness. Patient states this the first time he did heroin ever in his life. Symptom onset was fairly sudden, symptoms are moderate in nature. Related Data Home Medications Medication Instructions Recorded Confirmed Lantus U-100 Insulin 09/18/17 Novolog U-100 Insulin aspart See Protocol SUB-Q BID 09/18/17 09/18/17 Allergies Allergy/AdvReac Type Severity Reaction Status Date / Time acetaminophen Allergy Severe TONGUE Verified 09/18/17 15:28 SWELLING diclofenac Allergy Severe Swelling Verified 09/18/17 15:28 of Lip/Tongue/Throat etodolac Allergy Severe Swelling Verified 09/18/17 15:28 of Lip/Tongue/Throat flurbiprofen Allergy Severe Swelling Verified 09/18/17 15:28 of Lip/Tongue/Throat ibuprofen Allergy Severe Swelling Verified 09/18/17 15:28 of Lip/Tongue/Throat indomethacin Allergy Severe Swelling Verified 09/18/17 15:28 of Lip/Tongue/Throat ketoprofen Allergy Severe Swelling Verified 09/18/17 15:28 of Lip/Tongue/Throat ketorolac Allergy Severe Swelling Verified 09/18/17 15:28 naproxen Allergy Severe Swelling Verified 09/18/17 15:28 oxaprozin Allergy Severe Swelling Verified 09/18/17 15:28 ondansetron Allergy Intermediate RED SKIN Verified 09/18/17 15:28 Review of Systems ROS: all other systems reviewed are negative [facility] Medical History Medical History Constipation (Acute) Diabetes type I (Acute) Hypertension (Acute) Surgical History Surgical History History of cholecystectomy (Acute) Hx of appendectomy (Acute) Social History Social History Substance History: Active Abuse Second Hand Smoke Exposure: No Smoking Status: Never smoker Tobacco Type: Cigarettes How Often Do You Have a Drink Containing Alcohol: Monthly or less Recent Travel in [facility] within the Last 8 Weeks: No Recent Out of Country Travel within the Last 8 Weeks: No Immunization History Tetanus Immunization: Unsure Hx Influenza Vaccine This Season: No Exam Narrative Exam Narrative: GENERAL: Overweight, well-developed, alert male. Presenting in no acute distress. SKIN: Focused skin assessment warm/dry. 2+ pitting edema to bilateral lower extremities. HEAD: Atraumatic. Normocephalic. EYES: Pupils equal and round. No scleral icterus. No injection or drainage. ENT: No nasal bleeding or discharge. Mucous membranes pink and moist. NECK: Trachea midline. No JVD. CARDIOVASCULAR: Regular rate and rhythm. No murmur appreciated. RESPIRATORY: No accessory muscle use. Diminished in bases bilaterally. GASTROINTESTINAL: Abdomen soft, non-tender, nondistended. Hepatic and splenic margins not palpable. Positive bowel sounds, no rebound, no guarding. MUSCULOSKELETAL: No obvious deformities. No clubbing. No cyanosis. NEUROLOGICAL: Awake and alert. No obvious cranial nerve deficits. Motor grossly within normal limits. Normal speech. PSYCHIATRIC: Appropriate mood and affect; insight and judgment normal. Course Initial Documented Vital Signs Pulse Rate 115 H 09/18/17 15:04 Respiratory Rate 19 09/18/17 15:04 Blood Pressure 96/44 L 09/18/17 15:04 Pulse Oximetry 95 09/18/17 15:04 Last Documented Vital Signs Temperature 98.5 F 09/18/17 15:20 Pulse Rate 86 09/18/17 17:11 Respiratory Rate 20 09/18/17 17:11 Blood Pressure 108/64 09/18/17 17:11 Pulse Oximetry 98 09/18/17 19:37 Medical Decision Making DEVAUGHN Attestation DEVAUGHN supervised visit: Yes Attestation: I was present with the advanced practitioner during the management of this patient. I discussed the case with the advanced practitioner and agree with the findings and plan as documented in their note except as noted below. 47yM brought in by EMS for unresponsiveness. The patient has IDDM and reports that he took short and long-acting insulin this morning, did not check his sugar afterward, and didn't eat right away. He also reports that he "snorted a line of heroin". He started to feel shaky and sweaty so he attempted to eat high -sugar foods but lost consciousness. He was unresponsive on EMS arrival, glucose was 50, and was given 0.4 mg narcan and an amp of D50, and the patient rapidly returned to baseline mental status. He had an IO placed in his left tib- fib prior to arrival. No acute distress NCAT, pupils 2 mm and reactive RRR Lungs clear bilaterally Abdomen soft and non-tender IO in left lower leg GCS 15, awake and alert Diaphoretic A/P: 47yM presenting with insulin and opiate overdose EKG and monitor Labs CXR Serial glucose measurements Narcan PRN MDM Narrative Medical decision making narrative: Patient is a 47-year-old male that presented to the emergency department hypoglycemic and overdosing on heroin. Patient was alert on arrival, labs and imaging ordered and pending. Blood glucose is stable greater than 110. IV access was established, patient was placed on telemetry monitoring continuous pulse oximetry. Shortly after patient arrived he started to become drowsy again. He was given an additional 0.4 of Narcan IV and 2 mg IM at the same time. Labs reviewed, BUN and creatinine are elevated. Labs are otherwise unremarkable. Chest x-ray shows no acute disease. Due to the fact the patient took 35 units of Lantus and 12 units of regular insulin this morning as well as the overdose patient will be admitted to observation. While in the emergency department pt did not require any further doses of Narcan. He is sleeping but easily arousable and oriented. Pt admitted to medicine, he will go to [facility] for close observation. Differential Diagnosis Differential Diagnosis: Unintentional overdose versus hypoglycemia versus diabetic coma versus metabolic abnormality versus other Lab Data Lab results reviewed: Yes I reviewed the patient's lab results. Result diagrams: 09/18/17 15:40 09/18/17 15:40 Lab Results 09/18/17 09/18/17 09/18/17 Range/Units 15:40 15:40 15:40 WBC 5.1 (4.0-11.0) th/mm3 RBC 4.46 L (4.50-5.90) mil/mm3 Hgb 13.2 (13.0-17.0) gm/dL Hct 39.1 (39.0-51.0) % MCV 87.8 (80.0-100.0) fL MCH 29.6 (27.0-34.0) pg MCHC 33.7 (32.0-36.0) % RDW 13.3 (11.6-17.2) % Plt Count 233 (150-450) th/mm3 MPV 9.5 (7.0-11.0) fL Neut % (Auto) 63.7 (16.0-70.0) % Lymph % (Auto) 16.7 (9.0-44.0) % [place] % (Auto) 13.5 H (0.0-8.0) % Eos % (Auto) 4.9 H (0.0-4.0) % Baso % (Auto) 1.2 (0.0-2.0) % Neut # (Auto) 3.2 (1.8-7.7) th/mm3 Lymph # (Auto) 0.9 L (1.0-4.8) th/mm3 [place] # (Auto) 0.7 (0.0-0.9) th/mm3 Eos # (Auto) 0.2 (0.0-0.4) th/mm3 Baso # (Auto) 0.1 (0.0-0.2) th/mm3 WBC Differential . Differential Comment Auto diff final APTT 21.5 L (24.3-30.1) sec Sodium 142 (136-145) meq/L Potassium 4.2 (3.5-5.1) meq/L Chloride 108 H (98-107) meq/L Carbon Dioxide 24.7 (21.0-32.0) meq/L Anion Gap 9 (5-15) meq/L BUN 22 H (7-18) mg/dL Creatinine 2.26 H (0.60-1.30) mg/dL Estimated GFR 31 L (>89) mL/min POC Glucose (68-110) mg/dl Random Glucose 153 H (74-106) mg/dL Calcium 9.2 (8.5-10.1) mg/dL Magnesium 2.1 (1.5-2.5) mg/dL Total Bilirubin 0.4 (0.2-1.0) mg/dL AST 57 H (15-37) U/L ALT 87 H (12-78) U/L Alkaline Phosphatase 336 H (45-117) U/L Total Creatine Kinase 374 H (39-308) U/L CK-MB (CK-2) 3.2 (0.5-3.6) ng/mL CK-MB (CK-2) % 0.9 (0.0-4.0) % Troponin I Less than 0.02 L (0.02-0.05) ng/mL B-Natriuretic Peptide (0-100) pg/mL Total Protein 7.3 (6.4-8.2) g/dL Albumin 3.3 L (3.4-5.0) g/dL 09/18/17 09/18/17 Range/Units 15:40 19:30 WBC (4.0-11.0) th/mm3 RBC (4.50-5.90) mil/mm3 Hgb (13.0-17.0) gm/dL Hct (39.0-51.0) % MCV (80.0-100.0) fL MCH (27.0-34.0) pg MCHC (32.0-36.0) % RDW (11.6-17.2) % Plt Count (150-450) th/mm3 MPV (7.0-11.0) fL Neut % (Auto) (16.0-70.0) % Lymph % (Auto) (9.0-44.0) % [place] % (Auto) (0.0-8.0) % Eos % (Auto) (0.0-4.0) % Baso % (Auto) (0.0-2.0) % Neut # (Auto) (1.8-7.7) th/mm3 Lymph # (Auto) (1.0-4.8) th/mm3 [place] # (Auto) (0.0-0.9) th/mm3 Eos # (Auto) (0.0-0.4) th/mm3 Baso # (Auto) (0.0-0.2) th/mm3 WBC Differential Differential Comment APTT (24.3-30.1) sec Sodium (136-145) meq/L Potassium (3.5-5.1) meq/L Chloride (98-107) meq/L Carbon Dioxide (21.0-32.0) meq/L Anion Gap (5-15) meq/L BUN (7-18) mg/dL Creatinine (0.60-1.30) mg/dL Estimated GFR (>89) mL/min POC Glucose 62 L (68-110) mg/dl Random Glucose (74-106) mg/dL Calcium (8.5-10.1) mg/dL Magnesium (1.5-2.5) mg/dL Total Bilirubin (0.2-1.0) mg/dL AST (15-37) U/L ALT (12-78) U/L Alkaline Phosphatase (45-117) U/L Total Creatine Kinase (39-308) U/L CK-MB (CK-2) (0.5-3.6) ng/mL CK-MB (CK-2) % (0.0-4.0) % Troponin I (0.02-0.05) ng/mL B-Natriuretic Peptide 19 (0-100) pg/mL Total Protein (6.4-8.2) g/dL Albumin (3.4-5.0) g/dL Imaging Data Radiologist's impression: Venous Doppler Study 09/18/17 00:00 CONCLUSION: Negative study. No venous thrombosis of either lower extremity. Chest X-Ray 09/18/17 15:11 CONCLUSION: No acute cardiopulmonary process ECG Data Attestation: I personally reviewed and interpreted this ECG as follows: Interpretation: Rate: 113 BPM Rhythm: Sinus [place]: Normal Intervals: Normal intervals, no blocks, QTc 380 ms Q waves: III T waves: Inverted in III ST segments: No elevations or depressions Impression: Non-specific EKG, no changes as compared to EKG from 09/27/2016. Discharge Plan Discharge Disposition Patient Disposition: 30 Still Patient Discharge Condition Condition: Stable Discharge Details Diagnosis: Drug overdose, Acute renal failure (ARF), Hypoglycemia due to insulin Physicians Team ED Provider: Nicolette Solis ED Midlevel Provider: Tiffany Eckert Primary Care Provider: UNKNOWN, Attending Provider: Stewart Tirado Status ED Status: Admitted Patient
[2017-09-18] MEDS ORDERED: Naloxone Inj 0.4 MG/ML Vial IV.PUSH ONE (15:39)
[2017-09-18] MEDS ORDERED: Naloxone Inj 2 MG/2 ML Vial ONE (15:39)
[2017-09-18] MEDS ORDERED: Naloxone Inj 0.4 MG/ML Vial ONE (15:39)
[2017-09-18 16:14] LABS: Baso # (Auto) 0.1 th/mm3 (0.0-0.2); Baso % (Auto) 1.2 % (0.0-2.0); Eos # (Auto) 0.2 th/mm3 (0.0-0.4); Eos % (Auto) 4.9 % (0.0-4.0); Hematocrit 39.1 % (39.0-51.0); Hemoglobin 13.2 gm/dL (13.0-17.0); Lymph # (Auto) 0.9 th/mm3 (1.0-4.8); Lymph % (Auto) 16.7 % (9.0-44.0); Mean Corpuscular HGB Conc 33.7 % (32.0-36.0); Mean Corpuscular Hemoglobin 29.6 pg (27.0-34.0); Mean Corpuscular Volume 87.8 fL (80.0-100.0); Mean Platelet Volume 9.5 fL (7.0-11.0); Mono # (Auto) 0.7 th/mm3 (0.0-0.9); Mono % (Auto) 13.5 % (0.0-8.0); Neut # (Auto) 3.2 th/mm3 (1.8-7.7); Neut % (Auto) 63.7 % (16.0-70.0); Platelet Count 233 th/mm3 (150-450); Red Blood Count 4.46 mil/mm3 (4.50-5.90); Red Cell Distribution Width 13.3 % (11.6-17.2); White Blood Count 5.1 th/mm3 (4.0-11.0)
--- NOTE | 2017-09-18 16:26 | XR ---
EXAM DATE: 09/18/2017 4:21 PM EDT AGE/SEX: 47 years / Male INDICATIONS: Short of breath. CLINICAL DATA: This is the patient's initial encounter. Patient reports that signs and symptoms have been present for 1 day and indicates a pain score of 0/10. MEDICAL/SURGICAL HISTORY: Diabetes mellitus type I. None. COMPARISON: [facility], CHEST SINGLE AP, 09/21/2016. . FINDINGS: A single AP view of the chest demonstrates the lungs to be symmetrically aerated without evidence of mass, infiltrate or effusion. The cardiomediastinal contours are unremarkable. Osseous structures a re intact. CONCLUSION: No acute cardiopulmonary process Electronically signed by: Ryan Comer MD 09/18/2017 4:25 PM EDT
[2017-09-18 16:35] LABS: Alanine Aminotransferase 87 U/L (12-78); Albumin 3.3 g/dL (3.4-5.0); Anion Gap 9 meq/L (5-15); Aspartate Aminotransferase 57 U/L (15-37); Blood Urea Nitrogen 22 mg/dL (7-18); Calcium 9.2 mg/dL (8.5-10.1); Carbon Dioxide 24.7 meq/L (21.0-32.0); Chloride 108 meq/L (98-107); Glomerular Filtration Rate 31 mL/min (>89); Glucose,Random 153 mg/dL (74-106); Magnesium 2.1 mg/dL (1.5-2.5); Potassium 4.2 meq/L (3.5-5.1); Sodium 142 meq/L (136-145)
[2017-09-18 16:40] LABS: Alkaline Phosphatase 336 U/L (45-117); Creatine Kinase 374 U/L (39-308); Total Protein 7.3 g/dL (6.4-8.2)
[2017-09-18 16:52] LABS: CKMB Percent 0.9 % (0.0-4.0); Creatine Kinase MB 3.2 ng/mL (0.5-3.6)
[2017-09-18] MEDS ORDERED: Bisacodyl 10 MG Supp RECTAL PRN (18:02)
[2017-09-18] MEDS ORDERED: Temazepam 15 MG Capsule PO PRN (18:02)
[2017-09-18] MEDS ORDERED: Dextrose 50% in Water 50 ML Vial IV.PUSH PRN (18:05)
[2017-09-18] MEDS ORDERED: Naloxone Inj 0.4 MG/ML Vial IV.PUSH PRN (18:06)
--- NOTE | 2017-09-18 18:27 | P.HP ---
History of Present Illness Service: [facility] Primary Care Physician: UNKNOWN Chief Complaint: "I felt shaky" History of Present Illness: 47-year-old male with a past medical history significant for diabetes mellitus type 1, hypertension, and chronic constipation who presents to the emergency department today via EMS with concerns for possible overdose with hypoglycemia. Patient states that he normally takes Lantus 35 units twice daily , regular insulin 12 units 3 times daily along with insulin sliding scale. He reports that this morning he went to the pharmacy to refill his Lantus and took his 35 units of Levemir along with 12 units of regular insulin. He states that he had not been eating and did not have any breakfast or lunch prior to going to his girlfriend's house. When he was there he reports that he snorted 1 line of heroin and following this began to feel very shaky. Patient reports that he felt it was his blood sugar since he has had similar symptoms in the past with hypoglycemia. He was unable to check his blood sugar at the time however did manage to eat candy bars with no improvement in symptoms. Patient reports that he lost consciousness and when EVAC arrived does not remember what occurred after that. Review of ED documentation, blood sugar upon EVAC arrival was 50. Patient received D50 via IO access with improvement in blood sugar to 80. Patient was also received 0.4 mg of Narcan with improvement in mental status. Patient is seen and examined in the emergency department, he is awake, alert, and appears mildly sleepy but coherent. He denies any recent fevers, chills, nausea, vomiting, diarrhea, cough, shortness of breath, dizziness, headache or chest pain. Patient is asking when he will be discharged home. - Diagnosis (1) Drug overdose (2) Hypoglycemia (3) Acute renal failure (ARF) Review of Systems All other systems reviewed negative except as stated in HPI PMFSH - History History Provided By: Patient - Medical History Medical History: Medical History (Last Reviewed 09/18/17 @ 18:25 by Justina Guerrero) Constipation Diabetes type I Hypertension - Surgical History Surgical History: Surgical History (Last Updated 09/18/17 @ 18:25 by Justina Guerrero) History of cholecystectomy Hx of appendectomy - Tobacco History Second Hand Smoke Exposure: No Smoking Status: Never smoker Tobacco Type: Cigarettes - Alcohol History How Often Do You Have a Drink Containing Alcohol: Monthly or less - Substance Use History Substance History: Active 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 - Travel History Recent Travel in the [place] Within the Last 8 Weeks: No Recent Travel Out of the Country Within the Last 8 Weeks: No - Immunization History Tetanus Immunization: Unsure Hx Influenza Vaccine This Season: No Medications and Allergies Active Medications: Active Medications Al Hydroxide/Mg Hydroxide (Milk Of Magnesia Liq) 30 ml PO Q12H PRN PRN Reason: Mild Constipation Bisacodyl (Dulcolax Supp) 10 mg RECTAL DAILY PRN PRN Reason: SEVERE CONSITIPATION Dextrose (D50w Vial) 50 ml IV.PUSH UNSCH PRN PRN Reason: PER HYPOGLYCEMIA PROTOCOL Enoxaparin Sodium (Lovenox Inj) 30 mg SQ Q24H ROMMEL Glucagon (Glucagon Inj) 1 mg OTHER PRN PRN PRN Reason: for Hypoglycemia Protocol Dextrose/Sodium Chloride (D5w/1/2 Ns Inj) 1,000 mls @ 84 mls/hr IV.CONT .[id number] ROMMEL Lactulose (Lactulose Liq) 30 ml PO DAILY PRN PRN Reason: SEVERE CONSITIPATION Naloxone HCl (Narcan Inj) 0.4 mg IV.PUSH Q2M PRN PRN Reason: Over sedation/unable to awake Senna/Docusate Sodium (Sindi-Colace) 1 tab PO BID ROMMEL Sennosides (Senokot) 17.2 mg PO Q12H PRN PRN Reason: Moderate Constipation Sodium Chloride (Ns Flush) 2 ml IV.FLUSH PRN PRN PRN Reason: FLUSH AFTER USING IV ACCESS Temazepam (Restoril) 15 mg PO HS PRN PRN Reason: INSOMNIA Allergies Allergy/AdvReac Type Severity Reaction Status Date / Time acetaminophen Allergy Severe TONGUE Verified 09/18/17 15:28 SWELLING diclofenac Allergy Severe Swelling Verified 09/18/17 15:28 of Lip/Tongue/Throat etodolac Allergy Severe Swelling Verified 09/18/17 15:28 of Lip/Tongue/Throat flurbiprofen Allergy Severe Swelling Verified 09/18/17 15:28 of Lip/Tongue/Throat ibuprofen Allergy Severe Swelling Verified 09/18/17 15:28 of Lip/Tongue/Throat indomethacin Allergy Severe Swelling Verified 09/18/17 15:28 of Lip/Tongue/Throat ketoprofen Allergy Severe Swelling Verified 09/18/17 15:28 of Lip/Tongue/Throat ketorolac Allergy Severe Swelling Verified 09/18/17 15:28 naproxen Allergy Severe Swelling Verified 09/18/17 15:28 oxaprozin Allergy Severe Swelling Verified 09/18/17 15:28 ondansetron Allergy Intermediate RED SKIN Verified 09/18/17 15:28 Home Medications Medication Instructions Recorded Confirmed Type Lantus U-100 Insulin 09/18/17 History Novolog U-100 Insulin aspart See Protocol SUB-Q BID 09/18/17 09/18/17 History Exam Vital signs: Vital Signs 09/18/17 15:04 09/18/17 15:20 09/18/17 15:29 Temperature 36.9 C Pulse Rate 115 H 114 H Respiratory Rate 19 16 Blood Pressure 96/44 L 110/56 L Pulse Oximetry 95 95 09/18/17 16:10 09/18/17 17:09 09/18/17 17:11 Temperature Pulse Rate 80 86 Respiratory Rate 16 20 Blood Pressure 114/68 108/64 Pulse Oximetry 99 99 99 Intake & Output 09/17/17 09/18/17 09/18/17 18:59 06:59 18:59 Weight 108.862 kg Narrative: GENERAL: Well developed obese male in no acute distress. SKIN: Warm and dry. HEAD: Atraumatic. Normocephalic. EYES: Pupils equal and round. No scleral icterus. No injection or drainage. ENT: No nasal bleeding or discharge. Mucous membranes pink and moist. NECK: Trachea midline. No JVD. CARDIOVASCULAR: Regular rate and rhythm. RESPIRATORY: No accessory muscle use. Clear to auscultation. Breath sounds equal bilaterally. GASTROINTESTINAL: Abdomen soft, non-tender, nondistended. + Bowel sounds MUSCULOSKELETAL: Extremities without clubbing or cyanosis. Bilateral lower extremity edema +1. no obvious deformities. NEUROLOGICAL: Awake and alert, oriented 3. No obvious cranial nerve deficits. Motor grossly within normal limits. Five out of 5 muscle strength in the arms and legs. Normal speech. PSYCHIATRIC: Appropriate mood and affect; insight and judgment normal. Results - Labs CBC & Chem 7: 09/18/17 15:40 09/18/17 15:40 Labs: Laboratory Results - last 24 hr 09/18/17 09/18/17 09/18/17 15:40 15:40 15:40 WBC 5.1 RBC 4.46 L Hgb 13.2 Hct 39.1 MCV 87.8 MCH 29.6 MCHC 33.7 RDW 13.3 Plt Count 233 MPV 9.5 Neut % (Auto) 63.7 Lymph % (Auto) 16.7 Carlisle % (Auto) 13.5 H Eos % (Auto) 4.9 H Baso % (Auto) 1.2 Neut # (Auto) 3.2 Lymph # (Auto) 0.9 L [place] # (Auto) 0.7 Eos # (Auto) 0.2 Baso # (Auto) 0.1 WBC Differential . Differential Comment Auto diff final APTT 21.5 L Sodium 142 Potassium 4.2 Chloride 108 H Carbon Dioxide 24.7 Anion Gap 9 BUN 22 H Creatinine 2.26 H Estimated GFR 31 L Random Glucose 153 H Calcium 9.2 Magnesium 2.1 Total Bilirubin 0.4 AST 57 H ALT 87 H Alkaline Phosphatase 336 H Total Creatine Kinase 374 H CK-MB (CK-2) 3.2 CK-MB (CK-2) % 0.9 Troponin I Less than 0.02 L B-Natriuretic Peptide Total Protein 7.3 Albumin 3.3 L 09/18/17 15:40 WBC RBC Hgb Hct MCV MCH MCHC RDW Plt Count MPV Neut % (Auto) Lymph % (Auto) Carlisle % (Auto) Eos % (Auto) Baso % (Auto) Neut # (Auto) Lymph # (Auto) Carlisle # (Auto) Eos # (Auto) Baso # (Auto) WBC Differential Differential Comment APTT Sodium Potassium Chloride Carbon Dioxide Anion Gap BUN Creatinine Estimated GFR Random Glucose Calcium Magnesium Total Bilirubin AST ALT Alkaline Phosphatase Total Creatine Kinase CK-MB (CK-2) CK-MB (CK-2) % Troponin I B-Natriuretic Peptide 19 Total Protein Albumin - Imaging Impressions Chest X-Ray 09/18/17 15:11 CONCLUSION: No acute cardiopulmonary process Caprini VTE Risk Assessment Caprini VTE Risk Assessment: No/Low Risk (score <= 1) Caprini Risk Assessment Model: Point Value = 1 Point Value = 2 Point Value = 3 Point Value = 5 Age 41-60 Minor surgery BMI > 25 kg/m2 Swollen legs Varicose veins or History of unexplained or recurrent spontaneous Oral contraceptives or hormone replacement Sepsis (< 1 month) Serious lung disease, including pneumonia (< 1 month) Abnormal pulmonary function Acute myocardial infarction Congestive heart failure (< 1 month) History of inflammatory bowel disease Medical patient at bed rest Age 61-74 Arthroscopic surgery Major open surgery (> 45 min) Laparoscopic surgery (> 45 min) Malignancy Confined to bed (> 72 hours) Immobilizing plaster cast Central venous access Age >= 75 History of VTE Family history of VTE Factor V Leiden Prothrombin [id number] Lupus anticoagulant Anticardiolipin antibodies Elevated serum homocysteine Heparin-induced thrombocytopenia Other congenital or acquired thrombophilia Stroke (< 1 month) Elective arthroplasty Hip, pelvis, or leg fracture Acute spinal cord injury (< 1 month) Prophylaxis Regimen: Total Risk Factor Score Risk Level Prophylaxis Regimen 0-1 Low Early ambulation 2 Moderate Order ONE of the following: *Sequential Compression Device (SCD) *Heparin 5000 units SQ BID 3-4 Higher Order ONE of the following medications: *Heparin 5000 units SQ TID *Enoxaparin/Lovenox 40 mg SQ daily (WT < 150 kg, CrCl > 30 mL/min) *Enoxaparin/Lovenox 30 mg SQ daily (WT < 150 kg, CrCl > 10-29 mL/min) *Enoxaparin/Lovenox 30 mg SQ BID (WT < 150 kg, CrCl > 30 mL/min) AND/OR *Sequential Compression Device (SCD) 5 or more Highest Order ONE of the following medications: *Heparin 5000 units SQ TID (Preferred with Epidurals) *Enoxaparin/Lovenox 40 mg SQ daily (WT < 150 kg, CrCl > 30 mL/min) *Enoxaparin/Lovenox 30 mg SQ daily (WT < 150 kg, CrCl > 10-29 mL/min) *Enoxaparin/Lovenox 30 mg SQ BID (WT < 150 kg, CrCl > 30 mL/min) AND *Sequential Compression Device (SCD) Assessment and Plan - Assessment (1) Drug overdose Code(s): T50.901A - Poisoning by unspecified drugs, medicaments and biological substances, accidental (unintentional), initial encounter Status: Acute (2) Hypoglycemia Code(s): E16.2 - Hypoglycemia, unspecified Status: Acute (3) Acute renal failure (ARF) Code(s): N17.9 - Acute kidney failure, unspecified Status: Acute - Plan 47-year-old male with a past medical history significant for diabetes mellitus type 1, hypertension, and chronic constipation who presents to the emergency department today via EMS with concerns for possible overdose with hypoglycemia. Patient states that he normally takes Lantus 35 units twice daily , regular insulin 12 units 3 times daily along with insulin sliding scale. Unintentional heroin overdose -Patient received Narcan in the ED, continue as needed Narcan as needed while in ICU -Extensive discussion regarding drug cessation Hypoglycemia Diabetes mellitus type 1 -Patient usually on Lantus 35 units twice daily, regular short-acting insulin 12 units 3 times daily along with insulin sliding scale. Hold insulin for the moment due to recent hypoglycemia -Hypoglycemia protocol, diabetic diet -Continue to monitor blood sugars, most likely resume insulin tomorrow Hypertension -Patient normally on lisinopril at home, hold for the moment due to MICHAEL -BP stable off antihypertensives, continue to monitor Acute kidney injury Elevated CK, mild -Patient denies any history of renal disease, creatinine on admission 2.26, BUN 22, GFR 31 -Possibly secondary to dehydration, total CK 374 -Encourage p.o. hydration, recheck labs in the a.m. Bilateral lower extremity edema -BNP 19, chest x-ray negative -Check lower extremity ultrasound to rule out DVT Transaminitis, chronic -Patient reports he has had elevated liver enzymes in the past and workup has not revealed anything definitive -Discussed with patient that he will need to follow-up as outpatient for further workup DVT prophylaxis-subcu Lovenox Discussed Condition With: Discussed with Gerry and patient. (1) Drug overdose Qualifiers: Encounter type: initial encounter Injury intent: accidental or unintentional Qualified Code(s): T50.901A - Poisoning by unspecified drugs, medicaments and biological substances, accidental (unintentional), initial encounter (3) Acute renal failure (ARF) Qualifiers: Acute renal failure type: unspecified Qualified Code(s): N17.9 - Acute kidney failure, unspecified
--- NOTE | 2017-09-18 19:40 | US ---
EXAM DATE: 09/18/2017 7:34 PM EDT AGE/SEX: 47 years / Male INDICATIONS: Shortness of breath. CLINICAL DATA: This is the patient's initial encounter. Patient reports that signs and symptoms have been present for 1 day and indicates a pain score of 0/10. MEDICAL/SURGICAL HISTORY: . Hypoglycemia. Acute renal failure. Overdose. . COMPARISON: No prior exams available for comparison. TECHNIQUE: Venous ultrasound of both lower extremities was performed from the inguinal ligament to t he proximal calf. Real-time, color Doppler and spectral tracing, compression and augmentation techni ques were used. FINDINGS: Right Leg: Normal compression of the deep venous system from the inguinal region to the proximal mikayla f. No echogenic clot is seen. Normal response of the venous system to augmentation and respiration. Left Leg: Normal compression of the deep venous system from the inguinal region to the proximal calf . No echogenic clot is seen. Normal response of the venous system to augmentation and respiration. Other: None. CONCLUSION: Negative study. No venous thrombosis of either lower extremity. Electronically signed by: Randy Chaney MD 09/18/2017 7:39 PM EDT
[2017-09-18] MEDS ORDERED: Dextrose 5%/NaCl 0.45% Inj 1,000 ML IV.CONT SCH (20:00)
[2017-09-18] MEDS ORDERED: Enoxaparin Inj 30 MG/0.3 ML Syringe SQ SCH (20:00)
[2017-09-18] MEDS ORDERED: Senna/Docusate Sodium 8.6/50 MG Tablet PO SCH (21:00)
[2017-09-19 00:07] VITALS: BP 136/75; O2SAT 100
[2017-09-19 00:08] VITALS: TEMP 97.9
[2017-09-19 01:25] VITALS: PULSE 97; RESP 13
[2017-09-19] MEDS ORDERED: Insulin NovoLOG Aspart Correctional Sugar Inj SQ SCH (03:00)
[2017-09-19] MEDS ORDERED: Chlorhexidine Gluconate 2% 1 Pack (2 Cloths) TOPICAL SCH (04:00)
[2017-09-19] MEDS ORDERED: Chlorhexidine Gluconate 2% 1 Pack (2 Cloths) TOPICAL PRN (04:00)
--- NOTE | 2017-09-19 22:38 | ECG ---
Date Performed: 09/18/2017 Time Performed: 15:12:59 PTAGE: 47 years EKG: SINUS TACHYCARDIA ABNORMAL RHYTHM ECG INTERPRETATION BASED ON A DEFAULT AGE OF 40 YEARS PREVIOUS TRACING : 09/27/2016 11.25 Since the previous tracing, no significant change not ed DOCTOR: Sander Whipple Interpretating Date/Time 09/19/2017 22:36:38
== END 2017-09-19 02:16 | disposition left against medical advice (07) ==
LOC: NEPE 14:58 → NEDA 18:42 → HIMC 22:00
PROVIDERS: ADMIT Hospitalist; ATTEND Hospitalist

== ENCOUNTER 2017-10-14 16:30 | Inpatient (IN) ==
[2017-10-14] MEDS ORDERED: Diphtheria/Tetanus/Pertussis Vaccine Inj 0.5 ML Syringe IM ONE (16:37)
[2017-10-14] MEDS ORDERED: Morphine Inj 4 MG/ML Vial ONE ×2 (16:37→16:52)
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
[2017-10-14 17:06] LABS: Baso # (Auto) 0.1 th/mm3 (0.0-0.2); Baso % (Auto) 1.8 % (0.0-2.0); Eos # (Auto) 0.3 th/mm3 (0.0-0.4); Eos % (Auto) 4.3 % (0.0-4.0); Hemoglobin 13.2 gm/dL (13.0-17.0); Lymph # (Auto) 0.7 th/mm3 (1.0-4.8); Lymph % (Auto) 9.1 % (9.0-44.0); Mean Corpuscular HGB Conc 35.6 % (32.0-36.0); Mean Corpuscular Hemoglobin 30.5 pg (27.0-34.0); Mean Corpuscular Volume 85.5 fL (80.0-100.0); Mean Platelet Volume 8.4 fL (7.0-11.0); Mono # (Auto) 0.5 th/mm3 (0.0-0.9); Mono % (Auto) 6.3 % (0.0-8.0); Neut # (Auto) 5.6 th/mm3 (1.8-7.7); Neut % (Auto) 78.5 % (16.0-70.0); Platelet Count 224 th/mm3 (150-450); Red Blood Count 4.33 mil/mm3 (4.50-5.90); Red Cell Distribution Width 13.3 % (11.6-17.2); White Blood Count 7.1 th/mm3 (4.0-11.0)
[2017-10-14 17:20] LABS: Anion Gap 10 meq/L (5-15); Blood Urea Nitrogen 11 mg/dL (7-18); Calcium 8.7 mg/dL (8.5-10.1); Carbon Dioxide 25.3 meq/L (21.0-32.0); Chloride 103 meq/L (98-107); Glomerular Filtration Rate 79 mL/min (>89); Glucose,Random 260 mg/dL (74-106); Potassium 4.3 meq/L (3.5-5.1); Sodium 138 meq/L (136-145)
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
[2017-10-14 17:35] LABS: Activated Partial Thrombo Time 20.9 sec (24.3-30.1); Prothrombin Time 10.1 sec (9.8-11.6)
[2017-10-14] MEDS ORDERED: Morphine Inj 4 MG, Morphine Inj 2 MG IV.PUSH ONE ×4 (17:52→18:15)
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
[2017-10-14] MEDS ORDERED: Morphine Inj 4 MG/ML Vial IV.PUSH ONE (18:15)
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
[2017-10-14] MEDS ORDERED: Naloxone Inj 0.4 MG/ML Vial IV.PUSH PRN (19:34)
[2017-10-14] MEDS ORDERED: Post-op Orders (for Pharmacy) OTHER ONE (19:34)
[2017-10-14] MEDS ORDERED: Bisacodyl 10 MG Supp RECTAL PRN (19:34)
[2017-10-14] MEDS: Morphine Inj 4 MG/ML Vial IV.PUSH PRN (20:47)
[2017-10-14] MEDS: Famotidine 20 MG Tablet PO SCH (22:39)
[2017-10-14] MEDS: Senna/Docusate Sodium 8.6/50 MG Tablet PO SCH (22:39)
[2017-10-15] MEDS: Morphine Inj 4 MG/ML Vial IV.PUSH PRN ×5 (00:35→23:11)
[2017-10-15] MEDS ORDERED: Dextrose 50% in Water 50 ML Vial IV.PUSH PRN (00:43)
[2017-10-15 00:52] LABS: Bilirubin,Urine Negative (Negative); Clarity,Urine Clear (Clear); Color,Urine Yellow (Yellw/Straw); Glucose,Urine (UA) 500 or Greater mg/dL (Negative); Leukocyte Esterase,Urine Negative (Negative); Nitrite,Urine Negative (Negative); Specific Gravity,Urine 1.057 (1.002-1.035); Squamous Epithelial Cell,Urine <1 /hpf (0-5)
[2017-10-15 00:58] LABS: Amphetamine Screen,Urine Neg (Neg); Barbiturate Screen,Urine Neg (Neg); Cannabinoid Screen,Urine Neg (Neg); Cocaine Screen,Urine Neg (Neg)
[2017-10-15 00:59] LABS: Opiate Screen,Urine Pos (Neg)
[2017-10-15] MEDS: Sod Chloride 0.9% Inj 1,000 ML IV.CONT SCH ×2 (02:29→07:04)
[2017-10-15 06:37] LABS: Baso % (Auto) 0.7 % (0.0-2.0); Eos # (Auto) 0.1 th/mm3 (0.0-0.4); Eos % (Auto) 2.7 % (0.0-4.0); Hematocrit 34.9 % (39.0-51.0); Hemoglobin 11.8 gm/dL (13.0-17.0); Lymph # (Auto) 0.9 th/mm3 (1.0-4.8); Lymph % (Auto) 17.2 % (9.0-44.0); Mean Corpuscular HGB Conc 33.8 % (32.0-36.0); Mean Corpuscular Hemoglobin 29.5 pg (27.0-34.0); Mean Platelet Volume 8.5 fL (7.0-11.0); Mono # (Auto) 0.6 th/mm3 (0.0-0.9); Mono % (Auto) 11.2 % (0.0-8.0); Neut # (Auto) 3.6 th/mm3 (1.8-7.7); Neut % (Auto) 68.2 % (16.0-70.0); Platelet Count 192 th/mm3 (150-450); Red Blood Count 4.01 mil/mm3 (4.50-5.90); Red Cell Distribution Width 13.6 % (11.6-17.2); White Blood Count 5.2 th/mm3 (4.0-11.0)
[2017-10-15 06:51] LABS: Calcium 8.3 mg/dL (8.5-10.1); Carbon Dioxide 25.8 meq/L (21.0-32.0); Potassium 4.4 meq/L (3.5-5.1)
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
[2017-10-15] MEDS: Senna/Docusate Sodium 8.6/50 MG Tablet PO SCH ×3 (08:29→22:08)
[2017-10-15] MEDS: Lisinopril 10 MG Tablet PO SCH (08:30)
[2017-10-15] MEDS: Famotidine 20 MG Tablet PO SCH ×2 (08:30→22:09)
[2017-10-15] MEDS: Lidocaine 5% Patch T-DERMAL SCH (08:31)
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
[2017-10-15] MEDS: Insulin NovoLIN Regular Correctional Sugar Inj SQ SCH ×4 (09:59→22:12)
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
--- NOTE | 2017-10-15 12:28 | ECG ---
Date Performed: 10/15/2017 Time Performed: 10:21:20 PTAGE: 47 years EKG: SINUS TACHYCARDIA ABNORMAL RHYTHM ECG Since the PREVIOUS TRACING , no significant change noted PREVIOUS TRACIN09/18/2017 15.12 DOCTOR: Brie Doulgas Interpretating Date/Time 10/15/2017 12:26:29
[2017-10-15] MEDS: Enoxaparin Inj 40 MG/0.4 ML Syringe SQ SCH (17:57)
[2017-10-15] MEDS ORDERED: Insulin Detemir Inj 1,000 UNIT/10 ML Vial SQ ONE (21:00)
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
[2017-10-15] MEDS ORDERED: Enoxaparin Inj 40 MG/0.4 ML Syringe SQ SCH (22:00)
[2017-10-16] MEDS: Senna/Docusate Sodium 8.6/50 MG Tablet PO SCH ×3 (05:09→20:50)
--- NOTE | 2017-10-16 06:05 | XR ---
EXAM DATE: 10/16/2017 6:02 AM EDT AGE/SEX: 47 years / Male INDICATIONS: Follow up trauma, bilateral rib and sternum pain, short of breath CLINICAL DATA: This is the patient's subsequent encounter. Patient reports that signs and symptoms h ave been present for 2 days and indicates a pain score of 10/10. MEDICAL/SURGICAL HISTORY: Diabetes. bilateral rib fractures, manubrium fracture Cholecystectom y. Breast augmentation. COMPARISON: [facility] [place], CHEST 1V SINGLE AP, 10/15/2017. [facility] [place], CT CHEST W CONTRAST, 10/14/2017. . FINDINGS: Underinflated AP view of the chest demonstrates a normal-sized cardiac silhouette. There are mild fabrizio ear opacities at the lung bases, left greater than right. No pleural effusion or pneumothorax is iden tified. The bones and soft tissues demonstrate no acute abnormality. CONCLUSION: Underinflation with mild subsegmental atelectasis at the lung bases. Otherwise, no acute abnormality is appreciated Electronically signed by: Randy Strauss MD 10/16/2017 6:04 AM EDT
[2017-10-16] MEDS: Insulin NovoLIN Regular Correctional Sugar Inj SQ SCH ×4 (08:31→20:54)
[2017-10-16] MEDS: Insulin Detemir Inj 1,000 UNIT/10 ML Vial SQ SCH ×2 (08:32→20:54)
[2017-10-16] MEDS: Lidocaine 5% Patch T-DERMAL SCH (08:40)
[2017-10-16] MEDS: Morphine Inj 4 MG/ML Vial IV.PUSH PRN ×2 (08:40→08:58)
[2017-10-16] MEDS: Famotidine 20 MG Tablet PO SCH ×2 (08:40→20:51)
[2017-10-16] MEDS: Lisinopril 10 MG Tablet PO SCH (08:41)
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
[2017-10-16 12:24] LABS: Baso # (Auto) 0.1 th/mm3 (0.0-0.2); Baso % (Auto) 0.9 % (0.0-2.0); Eos # (Auto) 0.5 th/mm3 (0.0-0.4); Eos % (Auto) 7.8 % (0.0-4.0); Hematocrit 34.6 % (39.0-51.0); Hemoglobin 11.6 gm/dL (13.0-17.0); Lymph # (Auto) 0.9 th/mm3 (1.0-4.8); Lymph % (Auto) 12.8 % (9.0-44.0); Mean Corpuscular HGB Conc 33.7 % (32.0-36.0); Mean Corpuscular Hemoglobin 29.4 pg (27.0-34.0); Mean Corpuscular Volume 87.4 fL (80.0-100.0); Mean Platelet Volume 8.8 fL (7.0-11.0); Mono # (Auto) 0.8 th/mm3 (0.0-0.9); Mono % (Auto) 11.1 % (0.0-8.0); Neut # (Auto) 4.6 th/mm3 (1.8-7.7); Neut % (Auto) 67.4 % (16.0-70.0); Platelet Count 207 th/mm3 (150-450); Red Blood Count 3.95 mil/mm3 (4.50-5.90); Red Cell Distribution Width 13.8 % (11.6-17.2); White Blood Count 6.9 th/mm3 (4.0-11.0)
[2017-10-16 12:38] LABS: Calcium 8.5 mg/dL (8.5-10.1); Carbon Dioxide 29.2 meq/L (21.0-32.0); Potassium 4.1 meq/L (3.5-5.1)
--- NOTE | 2017-10-16 14:14 | CT ---
EXAM DATE: 10/16/2017 2:11 PM EDT AGE/SEX: 47 years / Male INDICATIONS: Change in altered mental status. CLINICAL DATA: This is the patient's initial encounter. Patient reports that signs and symptoms have been present for 1 day and indicates a pain score of 8/10. MEDICAL/SURGICAL HISTORY: Hypertension. Diabetes. None. RADIATION DOSE: 66.34 CTDI (mGy) COMPARISON: [facility] [place]AST, 10/14/2017. . No external comparison. TECHNIQUE: CT of the head without contrast. Using automated exposure control and adjustment of the mA and/or kV according to patient size, radiation dose was kept as low as reasonably achievable to ob tain optimal diagnostic quality images. DICOM format image data is available electronically for revi ew and comparison. FINDINGS: Cerebrum: The ventricles are normal for age. No evidence of midline shift, mass lesion, hemorrhage or acute infarction. No extraaxial fluid collections are seen. Posterior Fossa: The cerebellum and brainstem are intact. The 4th ventricle is midline. The cerebe llopontine angle is unremarkable. Extracranial: The visualized portion of the orbits is intact. Right scalp contusion/laceration. Skull: The calvaria is intact. No evidence of skull fracture. CONCLUSION: 1. No acute intracranial abnormality. Electronically signed by: Hair Kern MD 10/16/2017 2:13 PM EDT
[2017-10-16] MEDS ORDERED: Naloxone Inj 0.4 MG/ML Vial IV.PUSH ONE (15:20)
[2017-10-16] MEDS: Enoxaparin Inj 40 MG/0.4 ML Syringe SQ SCH (17:48)
[2017-10-17] MEDS: Senna/Docusate Sodium 8.6/50 MG Tablet PO SCH ×2 (08:49→21:08)
[2017-10-17] MEDS: Famotidine 20 MG Tablet PO SCH ×2 (08:49→21:07)
[2017-10-17] MEDS: Lidocaine 5% Patch T-DERMAL SCH (08:50)
[2017-10-17] MEDS: Insulin NovoLIN Regular Correctional Sugar Inj SQ SCH ×4 (08:50→21:09)
[2017-10-17] MEDS: Insulin Detemir Inj 1,000 UNIT/10 ML Vial SQ SCH ×2 (08:50→21:08)
[2017-10-17] MEDS: Lisinopril 10 MG Tablet PO SCH (08:51)
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
[2017-10-17] MEDS: diazePAM 5 MG Tablet PO SCH ×2 (14:12→21:08)
[2017-10-17 14:24] LABS: ABG Base Excess 3.1 mmol/L (-2-2); ABG PCO2 39 mmHg (38-42); ABG PO2 75 mmHg (61-120)
--- NOTE | 2017-10-17 15:03 | XR ---
EXAM DATE: 10/17/2017 2:57 PM EDT AGE/SEX: 47 years / Male INDICATIONS: Shortness of breath and chest pain. CLINICAL DATA: This is the patient's subsequent encounter. Patient reports that signs and symptoms h ave been present for 3 days and indicates a pain score of 4/10. MEDICAL/SURGICAL HISTORY: Diabetes. Hypertension. None. COMPARISON: [facility] [place], CHEST 1V SINGLE AP, 10/16/2017. . FINDINGS: A single AP view of the chest demonstrates the lungs to be symmetrically aerated without evidence of mass, infiltrate or effusion. Minimal linear atelectasis within the left base. The cardiomediastinal contours are unremarkable. Osseous structures are intact. CONCLUSION: Minimal linear atelectasis within the left base. Electronically signed by: Salinas English MD 10/17/2017 3:01 PM EDT
[2017-10-17] MEDS: Morphine Inj 4 MG/ML Vial IV.PUSH PRN (17:45)
[2017-10-17] MEDS: Enoxaparin Inj 40 MG/0.4 ML Syringe SQ SCH (17:46)
[2017-10-18] MEDS: diazePAM 5 MG Tablet PO SCH ×3 (05:50→20:56)
[2017-10-18] MEDS: Senna/Docusate Sodium 8.6/50 MG Tablet PO SCH ×2 (09:02→20:57)
[2017-10-18] MEDS: Famotidine 20 MG Tablet PO SCH ×2 (09:02→20:57)
[2017-10-18] MEDS: Lisinopril 10 MG Tablet PO SCH (09:03)
[2017-10-18] MEDS: Lidocaine 5% Patch T-DERMAL SCH (09:06)
[2017-10-18] MEDS: Insulin Detemir Inj 1,000 UNIT/10 ML Vial SQ SCH ×2 (09:13→21:48)
[2017-10-18] MEDS: Insulin NovoLIN Regular Correctional Sugar Inj SQ SCH ×4 (09:13→21:53)
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
[2017-10-18] MEDS: Enoxaparin Inj 40 MG/0.4 ML Syringe SQ SCH (16:06)
[2017-10-18] MEDS: Morphine Inj 4 MG/ML Vial IV.PUSH PRN ×2 (16:06→21:01)
[2017-10-18] MEDS: FLUoxetine 20 MG Capsule PO SCH (20:56)
[2017-10-19] MEDS: diazePAM 5 MG Tablet PO SCH ×3 (05:47→20:15)
[2017-10-19] MEDS: Insulin NovoLIN Regular Correctional Sugar Inj SQ SCH ×4 (09:39→21:54)
[2017-10-19] MEDS: Insulin Detemir Inj 1,000 UNIT/10 ML Vial SQ SCH ×2 (09:40→20:34)
[2017-10-19] MEDS: Famotidine 20 MG Tablet PO SCH ×2 (09:41→20:15)
[2017-10-19] MEDS: Lisinopril 10 MG Tablet PO SCH (09:41)
[2017-10-19] MEDS: Senna/Docusate Sodium 8.6/50 MG Tablet PO SCH ×2 (09:41→20:15)
[2017-10-19] MEDS: Lidocaine 5% Patch T-DERMAL SCH (09:42)
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
[2017-10-19] MEDS: Morphine Inj 4 MG/ML Vial IV.PUSH PRN ×3 (12:50→23:49)
[2017-10-19] MEDS: Enoxaparin Inj 40 MG/0.4 ML Syringe SQ SCH (17:33)
[2017-10-19] MEDS: FLUoxetine 20 MG Capsule PO SCH (20:15)
[2017-10-20] MEDS: diazePAM 5 MG Tablet PO SCH ×3 (05:59→20:30)
[2017-10-20] MEDS: Morphine Inj 4 MG/ML Vial IV.PUSH PRN ×2 (06:32→11:39)
[2017-10-20] MEDS: Senna/Docusate Sodium 8.6/50 MG Tablet PO SCH ×2 (08:42→20:29)
[2017-10-20] MEDS: Famotidine 20 MG Tablet PO SCH ×2 (08:42→20:29)
[2017-10-20] MEDS: Lisinopril 10 MG Tablet PO SCH (08:42)
[2017-10-20] MEDS: Insulin NovoLIN Regular Correctional Sugar Inj SQ SCH ×4 (08:43→21:23)
[2017-10-20] MEDS: Lidocaine 5% Patch T-DERMAL SCH (08:45)
[2017-10-20] MEDS: Insulin Detemir Inj 1,000 UNIT/10 ML Vial SQ SCH ×2 (08:45→21:21)
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
[2017-10-20] MEDS: Enoxaparin Inj 40 MG/0.4 ML Syringe SQ SCH (18:47)
[2017-10-20] MEDS: FLUoxetine 20 MG Capsule PO SCH (20:30)
[2017-10-21] MEDS: diazePAM 5 MG Tablet PO SCH ×3 (04:50→21:30)
[2017-10-21] MEDS: Lisinopril 10 MG Tablet PO SCH (08:57)
[2017-10-21] MEDS: Famotidine 20 MG Tablet PO SCH ×2 (08:57→21:30)
[2017-10-21] MEDS: Senna/Docusate Sodium 8.6/50 MG Tablet PO SCH ×2 (08:57→21:30)
[2017-10-21] MEDS: Insulin Detemir Inj 1,000 UNIT/10 ML Vial SQ SCH ×2 (08:58→21:33)
[2017-10-21] MEDS: Lidocaine 5% Patch T-DERMAL SCH (08:58)
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
[2017-10-21] MEDS: Insulin NovoLIN Regular Correctional Sugar Inj SQ SCH ×3 (13:14→21:33)
[2017-10-21] MEDS: Enoxaparin Inj 40 MG/0.4 ML Syringe SQ SCH (18:07)
[2017-10-21] MEDS: FLUoxetine 20 MG Capsule PO SCH (21:30)
[2017-10-22] MEDS: diazePAM 5 MG Tablet PO SCH ×3 (05:30→20:28)
[2017-10-22] MEDS: Insulin NovoLIN Regular Correctional Sugar Inj SQ SCH ×3 (08:36→17:13)
[2017-10-22] MEDS: Insulin Detemir Inj 1,000 UNIT/10 ML Vial SQ SCH ×2 (08:37→21:00)
[2017-10-22] MEDS: Famotidine 20 MG Tablet PO SCH ×2 (08:37→20:28)
[2017-10-22] MEDS: Lisinopril 10 MG Tablet PO SCH (08:37)
[2017-10-22] MEDS: Senna/Docusate Sodium 8.6/50 MG Tablet PO SCH ×2 (08:37→20:28)
[2017-10-22] MEDS: Lidocaine 5% Patch T-DERMAL SCH (09:16)
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
--- NOTE | 2017-10-22 15:15 | P.DCO ---
- Physical Therapy Order: Evaluate and treat, Improve ambulation, Strength and gait training - Home Health Nursing Order: Medical education, Signs/symptoms of disease process, Medication education-adverse effect, Nursing assessment with vital signs - Certification I have seen patient Timur Muniz JR on 10/22/17. My clinical findings support the need for the requested home health care services because: Limited mobility due to disease progression, Patient has SOB, Deconditioned with increased weakness, Medication compliance is questionable, Limited ability to care for self, Impaired cognition/judgement, High risk of falls I certify that my clinical findings support that this patient is homebound because: Post-op weakness, Impaired cognitive ability/safety, Unsteady gait/balance, Unsafe to leave home unassisted, Non-ambulatory: confined to bed or chair, Unable to use public transportation
[2017-10-22] MEDS: Enoxaparin Inj 40 MG/0.4 ML Syringe SQ SCH (17:17)
[2017-10-22] MEDS: FLUoxetine 20 MG Capsule PO SCH (20:28)
[2017-10-23] MEDS: diazePAM 5 MG Tablet PO SCH ×2 (05:23→12:19)
[2017-10-23] MEDS: Insulin NovoLIN Regular Correctional Sugar Inj SQ SCH ×4 (05:33→17:27)
[2017-10-23] MEDS: Lisinopril 10 MG Tablet PO SCH (08:01)
[2017-10-23] MEDS: Senna/Docusate Sodium 8.6/50 MG Tablet PO SCH (08:01)
[2017-10-23] MEDS: Famotidine 20 MG Tablet PO SCH (08:01)
[2017-10-23] MEDS: Lidocaine 5% Patch T-DERMAL SCH (08:02)
--- NOTE | 2017-10-23 08:04 | P.DCO ---
- Home Health Nursing Order: Medical education, Signs/symptoms of disease process, Diabetic education , Medication education-adverse effect, Wound care and dressing changes (Road rash abrasions. Wash gently with soap and water. Pat Dry. Bacitracin as needed. (May cover with telpha and wrap with kadi. )) - Certification I have seen patient Timur Muniz on 10/23/17. My clinical findings support the need for the requested home health care services because: Limited mobility due to disease progression, Patient has SOB, Deconditioned with increased weakness, Medication compliance is questionable, Limited ability to care for self, Impaired cognition/judgement, High risk of falls, Infection with risk of complications I certify that my clinical findings support that this patient is homebound because: Post-op weakness, Impaired cognitive ability/safety, Unsteady gait/balance, Unsafe to leave home unassisted, Unable to use public transportation
[2017-10-23] MEDS: Insulin Detemir Inj 1,000 UNIT/10 ML Vial SQ SCH (08:23)
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
[2017-10-23] MEDS: Enoxaparin Inj 40 MG/0.4 ML Syringe SQ SCH (16:18)
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
== END 2017-10-23 20:04 | disposition home or self-care (01) ==
LOC: NEPE 16:30 → NEDA 16:30 → NEPHCDU 19:35 → N06 10-15 01:41
PROVIDERS: ADMIT Surgery; ATTEND Surgery

== ENCOUNTER 2017-11-21 20:31 | Observation (INO) ==
[2017-11-22] MEDS ORDERED: Dextrose 50% in Water 50 ML Vial IV.PUSH PRN (04:47)
[2017-11-22] MEDS: Morphine Sulfate Inj 2 MG/ML Vial IV.PUSH PRN ×2 (06:37→09:50)
[2017-11-22 07:50] LABS: Creatine Kinase 41 U/L (39-308)
[2017-11-22 08:45] LABS: Potassium 4.6 meq/L (3.5-5.1)
--- NOTE | 2017-11-22 08:46 | ECG ---
Date Performed: 11/22/2017 Time Performed: 05:12:24 PTAGE: 47 years EKG: Sinus rhythm NORMAL ECG PREVIOUS TRACING : 11/17/2017 15.11 No significant change from previous tracing noted. DOCTOR: Miguel Avelar Interpretating Date/Time 11/22/2017 08:46:09
[2017-11-22 08:48] LABS: Calcium 8.7 mg/dL (8.5-10.1); Carbon Dioxide 22.5 meq/L (21.0-32.0)
[2017-11-22] MEDS: Insulin NovoLOG Aspart Correctional Sugar Inj SQ SCH ×4 (09:02→21:35)
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
[2017-11-22 11:25] LABS: Creatine Kinase 41 U/L (39-308)
[2017-11-22] MEDS: levoFLOXacin 750 MG Tablet PO SCH (12:11)
[2017-11-22] MEDS: Lisinopril 10 MG Tablet PO SCH (12:11)
[2017-11-22] MEDS: FLUoxetine 20 MG Capsule PO SCH (12:11)
[2017-11-22] MEDS: Insulin Detemir Inj 1,000 UNIT/10 ML Vial SQ SCH ×2 (12:12→21:36)
[2017-11-22] MEDS: Lidocaine 5% Patch T-DERMAL SCH (12:14)
--- NOTE | 2017-11-22 12:32 | ECG ---
Date Performed: 11/22/2017 Time Performed: 10:48:04 PTAGE: 47 years EKG: Sinus rhythm NORMAL ECG PREVIOUS TRACING : 11/22/2017 05.12 No significant change from previous tracing noted. DOCTOR: Miguel Avelar Interpretating Date/Time 11/22/2017 12:30:26
[2017-11-23 07:38] LABS: Baso % (Auto) 0.7 % (0.0-2.0); Eos # (Auto) 0.3 th/mm3 (0.0-0.4); Eos % (Auto) 5.1 % (0.0-4.0); Hematocrit 36.5 % (39.0-51.0); Lymph # (Auto) 1.2 th/mm3 (1.0-4.8); Lymph % (Auto) 23.7 % (9.0-44.0); Mean Corpuscular HGB Conc 32.9 % (32.0-36.0); Mean Corpuscular Hemoglobin 28.5 pg (27.0-34.0); Mean Corpuscular Volume 86.7 fL (80.0-100.0); Mean Platelet Volume 7.8 fL (7.0-11.0); Mono # (Auto) 0.4 th/mm3 (0.0-0.9); Mono % (Auto) 8.5 % (0.0-8.0); Neut # (Auto) 3.1 th/mm3 (1.8-7.7); Platelet Count 290 th/mm3 (150-450); Red Blood Count 4.22 mil/mm3 (4.50-5.90); Red Cell Distribution Width 12.8 % (11.6-17.2)
[2017-11-23 08:04] LABS: Calcium 8.5 mg/dL (8.5-10.1); Carbon Dioxide 27.1 meq/L (21.0-32.0); Potassium 3.3 meq/L (3.5-5.1)
[2017-11-23] MEDS: FLUoxetine 20 MG Capsule PO SCH (08:29)
[2017-11-23] MEDS: Lidocaine 5% Patch T-DERMAL SCH (08:29)
[2017-11-23] MEDS: Lisinopril 10 MG Tablet PO SCH (08:29)
[2017-11-23] MEDS: Insulin NovoLOG Aspart Correctional Sugar Inj SQ SCH (08:30)
[2017-11-23] MEDS: Insulin Detemir Inj 1,000 UNIT/10 ML Vial SQ SCH (08:30)
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
[2017-11-23] MEDS: levoFLOXacin 750 MG Tablet PO SCH (12:36)
== END 2017-11-23 13:20 | disposition home or self-care (01) ==
LOC: PHEDDLT 11-22 03:40 → PH3 11-22 03:40
PROVIDERS: ADMIT Hospitalist; ATTEND Hospitalist